=== PATIENT | female | born 2000 | race Caucasian/White ===

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

== ENCOUNTER → 2020-07-01 13:29 | Outpatient (CLI) | payer BC, SELFPAY ==
[2020-07-01 15:25] LABS: AST(SGOT) 25 U/L (15-37); Alanine Aminotransfer ALT/SGPT 46 U/L (13-56); Albumin, Serum 3.8 g/dL (3.2-5.0); Alkaline Phosphatase 113 U/L (45-117); Amylase 44 U/L (25-115); Anion Gap 5 (5-15); BUN 11 mg/dL (7-18); BUN/Creat Ratio 13.7 RATIO (10-20); Calcium,Total 9.3 mg/dL (8.5-10.1); Chloride 104 mmol/L (98-107); EST Glomerular Filtration Rate 95 mL/min (>60); Est Glom Filt Rate - Afr Amer 115 mL/min (>60); Globulin 4.4 g/dL (2.2-4.2); Glucose 82 mg/dL (74-106); Lipase 34 U/L (73-393); Potassium 3.7 mmol/L (3.5-5.1); Protein, Total 8.2 g/dL (6.4-8.2); Sodium Level 136 mmol/L (136-145)
== END ==
PROVIDERS: PCP Family Medicine; Visit Provider Family Medicine
DX: R11.10 Vomiting, unspecified (principal)
CPT/HCPCS: 36415; 80048; 80076; 82150; 83690

== ENCOUNTER → 2020-07-08 08:47 | Outpatient (CLI) | payer BC, SELFPAY ==
--- NOTE | 2020-07-08 08:52 | US_ITS ---
STUDY: ABDOMINAL ULTRASOUND - RIGHT UPPER QUADRANT REASON FOR VISIT: Female, 19 years old vomiting TECHNIQUE: Ultrasound evaluation of the right upper quadrant was performed with real-time and static leary-scale imaging. TECHNICAL QUALITY: Limited. Examination limited due to obesity. COMPARISON: None. FINDINGS: Liver: The liver measures 13.3 cm. There is normal echogenicity of the liver. The bile ducts are within normal limits. There is hepatic color flow. The direction of portal flow is hepatopetal. There is no demonstrated mass lesion. Gallbladder: Normal distended gallbladder. The gallbladder wall measures 3.5 mm. There is a negative sonographic Lewis''s sign. There is no pericholecystic fluid. There are no gallstones. Common Bile Duct (C.B.D.): The common bile duct measures 4.7 mm. Pancreas: Visualized pancreas is sonographically normal Right Kidney: Normal size of the right kidney. The right kidney measures 11.6 x 4.1 x 4.1 cm. Normal renal cortex. The right cortex measures 1.9 cm. There is a simple 1.1 cm cyst There is no right hydronephrosis. US/Abdomen Limited IMPRESSION: No suspicious sonographic findings, simple right renal cyst, no specific follow-up needed Electronically Signed: Subhash Lake MD at 9:41 EDT , Service support ,
== END ==
PROVIDERS: PCP Family Medicine; Referring Provider Family Medicine; Visit Provider Family Medicine
DX: R11.10 Vomiting, unspecified (principal)
CPT/HCPCS: 76705

== ENCOUNTER → 2020-09-09 | Outpatient (CLI) | payer BC, SELFPAY ==
[2020-09-09 21:29] LABS: Probe Check PASS; Specimen Processing Control PASS
== END | disposition home or self-care (01) ==
PROVIDERS: PCP Family Medicine; Referring Provider Family Medicine; Visit Provider Family Medicine
DX: B34.9 Viral infection, unspecified (principal)
CPT/HCPCS: 87633; 87635; U0005; U0003

== ENCOUNTER → 2020-11-17 15:43 | Outpatient (CLI) | payer BC, SELFPAY ==
[2020-11-17 17:54] LABS: T4 Free Direct 1.06 ng/dL (0.76-1.46); Thyroid Stim Hormone (TSH) 2.34 uIU/mL (0.358-3.74)
[2020-11-20 03:07] LABS: Chlamydia By Nucleic Acid AMP Negative (Negative)
[2020-11-20 12:51] LABS: Gonococcus By Nucleic Acid AMP Negative (Negative)
[2020-11-22 13:23] LABS: HPV Reflexed? NOT INDICATED
== END ==
PROVIDERS: PCP Family Medicine; Visit Provider Obstetrics & Gynecology
DX: N92.6 Irregular menstruation, unspecified (principal); Z12.4 Encounter for screening for malignant neoplasm of cervix; Z11.3 Encounter for screening for infections with a predominantly sexual mode of transmission
CPT/HCPCS: 36415; 84439; 84443; 84481; 87491; 87591; 88175; G0145

== ENCOUNTER → 2021-09-13 | Outpatient (CLI) | payer BC, SELFPAY ==
--- NOTE | 2021-09-13 18:14 | US_ITS ---
EXAM: US PELVIS TRANSVAGINAL CLINICAL INDICATION: IRREG MENSES TECHNIQUE: Transvaginal pelvic ultrasound was performed with grayscale and color Doppler imaging. Transvaginal imaging was used for better evaluation of the endometrium and adnexa. This report was created using [employer] technology. COMPARISON: None. FINDINGS: UTERUS/CERVIX: Anteverted uterus. Uterus measures 8.3 x 4.7 x 2.9 cm with no discrete masses. Endometrial thickness is 6 mm. Cervix contains nabothian cysts. RIGHT OVARY: Blood flow to both ovaries. No ovarian or any adnexal masses. Right ovary measures 3.2 x 2.0 x 2.0 cm while the left ovary measures 3.9 x 2.1 x 1.4 cm. LEFT OVARY: See above. FREE FLUID: Small amount of free fluid in pelvic cul-de-sac is nonspecific. BLADDER: Empty bladder which cannot be evaluated with this probe. US/Transvaginal Non- IMPRESSION: 1. Small amount of free fluid in pelvic cul-de-sac is nonspecific. 2. No ovarian or adnexal masses. Electronically Signed: Benjamin Minor MD at 1:11 EDT ,
== END | disposition home or self-care (01) ==
LOC: US 18:04
PROVIDERS: PCP Family Medicine; Referring Provider Family Medicine; Visit Provider Family Medicine
DX: N92.6 Irregular menstruation, unspecified (principal)
CPT/HCPCS: 76830

== ENCOUNTER → 2023-09-27 | Outpatient (CLI) | payer BC, SELFPAY ==
[2023-09-27 10:59] LABS: Absolute Lymphocyte Count 2.92 X10^3/uL (0.83-4.51); Absolute Neutrophil Count 8.5 X10^3/uL (2.0-7.7); Basophil# 0.02 X10^3/uL; Basophil% 0.2 % (0-1); Eosinophil# 0.11 X10^3/uL; Eosinophils% 0.9 % (0-5); Hemoglobin 13.2 g/dL (12.0-15.0); Lymphocyte # 2.92 X10^3/ul (0.83-4.51); Lymphocyte % 23.9 % (19-41); Mean Corp Hgb Conc 32.2 g/dL (32-36); Mean Corpuscular Volume 80.9 fL (81-99); Mean Platelet Vol. 10.5 fl (6.2-12.0); Monocyte% 4.9 % (0-10); NRBC Flagged by Analyzer 0 % (0-5); Neutrophil # 8.53 X10^3/uL (2.7-7.7); Neutrophil % 69.9 % (47-70); Platelet Count 319 K/mm3 (150-450); RBC Distribution Width SD 41.1 fl (35.1-43.9); Red Blood Count 5.07 M/mm3 (4.2-5.4); White Blood Count 12.2 K/mm3 (4.4-11.0)
[2023-09-27 11:27] LABS: Hemoglobin A1c 5.2 % (3.8-5.6)
[2023-09-27 11:49] LABS: ALB/GLOB Ratio 0.8 RATIO (0.9-2.4); AST(SGOT) 25 U/L (15-37); Alanine Aminotransfer ALT/SGPT 45 U/L (13-56); Albumin, Serum 3.5 g/dL (3.2-5.0); Alkaline Phosphatase 108 U/L (45-117); Anion Gap 3 (5-15); BUN 12 mg/dL (7-18); Chloride 104 mmol/L (98-107); EST Glomerular Filtration Rate 93 mL/min (>60); Est Glom Filt Rate - Afr Amer 113 mL/min (>60); Estradiol 62.8 pg/mL; Follicle Stimulating Hormone 4.7 mIU/mL; Free T3 3.3 pg/mL (2.18-3.98); Globulin 4.4 g/dL (2.2-4.2); Glucose 99 mg/dL (74-106); Potassium 3.8 mmol/L (3.5-5.1); Protein, Total 7.9 g/dL (6.4-8.2); Sodium Level 135 mmol/L (136-145); T4 Free Direct 1.04 ng/dL (0.76-1.46); Thyroid Stim Hormone (TSH) 4.67 uIU/mL (0.358-3.74)
[2023-10-03 12:09] LABS: 17-Hydroxyprogesterone 32 ng/dL (.)
== END | disposition home or self-care (01) ==
PROVIDERS: PCP Family Medicine; Referring Provider Nurse Practitioner Family; Visit Provider Nurse Practitioner Family
DX: N91.4 Secondary oligomenorrhea (principal); E66.01 Morbid (severe) obesity due to excess calories; Z68.42 Body mass index [BMI] 45.0-49.9, adult; Z13.29 Encounter for screening for other suspected endocrine disorder
CPT/HCPCS: 36415; 80053; 82627; 82670; 83001; 83036; 83498; 84403; 84439; 84443; 84481; 85025; 82626

== ENCOUNTER → 2023-10-03 | Outpatient (CLI) | payer BC, SELFPAY ==
--- NOTE | 2023-10-03 12:31 | US_ITS ---
STUDY: ULTRASOUND OF THE FEMALE PELVIS - COMPLETE REASON FOR EXAM: Female, 23 years old. Oligomenorrhea . History of polycystic ovary disease. LMP: July 26, 2023. TECHNIQUE: Transabdominal and Transvaginal TECHNICAL QUALITY: Adequate. COMPARISON: Comparison is made with prior study dated September 13, 2021. FINDINGS: The uterus is anteverted and is in a midline position. The uterus measures 9 cm x 6.2 cm x 2.3 cm. There is a Nabothian cyst of the cervix. The endometrium measures 12 mm in thickness, and is heterogeneous (striated). There is no demonstrated endometrial mass. There is no demonstrated myometrial mass. I.U.D. - The patient does not have an I.U.D. The right ovary is visualized. The right ovary measures 3.8 cm x 2.6 cm x 2.1 cm. There is no right ovarian cyst or ovarian mass. There is no visualized right adnexal mass or complex lesion. There is normal arterial and normal venous vascularity. The left ovary is visualized. The left ovary measures 3.6 cm x 2.7 cm x 2.4 cm. There is no left ovarian cyst or ovarian mass. There is no visualized left adnexal mass or complex lesion. There is normal arterial and normal venous vascularity. There is minimal fluid in the cul-de-sac. The pre void volume of the bladder was 101 ml. US/Pelvic w/ Transvaginal IMPRESSION: Minimal amount of free fluid in the cul-de-sac. Heterogeneous appearance of the endometrium. Endometrium measures 12 mm. Electronically Signed: Jacob Delarosa MD at 10:44 EDT ,
== END | disposition home or self-care (01) ==
LOC: US 12:26
PROVIDERS: PCP Family Medicine; Referring Provider Nurse Practitioner Family; Visit Provider Nurse Practitioner Family
DX: N91.4 Secondary oligomenorrhea (principal); E66.01 Morbid (severe) obesity due to excess calories; Z68.42 Body mass index [BMI] 45.0-49.9, adult
CPT/HCPCS: 76830; 76856

== ENCOUNTER → 2023-12-06 | Outpatient (CLI) | payer BC, SELFPAY ==
[2023-12-06 11:20] LABS: Absolute Lymphocyte Count 3.46 X10^3/uL (0.83-4.51); Absolute Neutrophil Count 7.7 X10^3/uL (2.0-7.7); Basophil# 0.02 X10^3/uL; Basophil% 0.2 % (0-1); Eosinophil# 0.17 X10^3/uL; Eosinophils% 1.4 % (0-5); Hematocrit 34.4 % (37-47); Lymphocyte # 3.46 X10^3/ul (0.83-4.51); Lymphocyte % 28.8 % (19-41); Mean Corpuscular Hgb 25.5 pg (27.0-32.0); Mean Corpuscular Volume 79.8 fL (81-99); Mean Platelet Vol. 9.9 fl (6.2-12.0); Monocyte# 0.57 X10^3/uL; Monocyte% 4.8 % (0-10); NRBC Flagged by Analyzer 0 % (0-5); Neutrophil # 7.71 X10^3/uL (2.7-7.7); Neutrophil % 64.2 % (47-70); Platelet Count 355 K/mm3 (150-450); RBC Distribution Width CV 14.3 % (11.6-14.6); RBC Distribution Width SD 41.3 fl (35.1-43.9); Red Blood Count 4.31 M/mm3 (4.2-5.4)
== END | disposition home or self-care (01) ==
LOC: LAB 11:02
PROVIDERS: Internal Medicine Endocrinology, Diabetes & Metabolism; PCP Family Medicine; Referring Provider Nurse Practitioner Family; Visit Provider Nurse Practitioner Family
DX: R94.6 Abnormal results of thyroid function studies (principal); N92.6 Irregular menstruation, unspecified
CPT/HCPCS: 36415; 84443; 85025; 86376

== ENCOUNTER → 2023-12-12 | Outpatient (CLI) | payer BC, SELFPAY ==
--- NOTE | 2023-12-12 12:12 | US_ITS ---
STUDY: ULTRASOUND OF THE FEMALE PELVIS - COMPLETE REASON FOR EXAM: Female, 23 years old. Abnormal uterine bleeding LMP: TECHNIQUE: Transabdominal and Transvaginal TECHNICAL QUALITY: Limited. Examination limited due to obesity. COMPARISON: Comparison is made with prior study dated October 03, 2023. FINDINGS: The uterus is anteverted and is in a midline position. The uterus measures 9.3 cm x 5.1 cm x 5.8 cm. There is a Nabothian cyst of the cervix. The endometrium measures 5 mm in thickness, and is heterogeneous (striated). There is no demonstrated endometrial mass. There is no demonstrated myometrial mass. I.U.D. - The patient does not have an I.U.D. The right ovary is visualized. The right ovary measures 3.7 cm x 2.8 cm x 1.7 cm. There is no right ovarian cyst or ovarian mass. There is no visualized right adnexal mass or complex lesion. There is normal arterial and normal venous vascularity. The left ovary is visualized. The left ovary measures 4 cm x 2.6 x 2.2 cm. There is no left ovarian cyst or ovarian mass. There is no visualized left adnexal mass or complex lesion. There is normal arterial and normal venous vascularity. There is no fluid in the cul-de-sac. The pre void volume of the bladder was 2051 ml. The post void volume of the bladder was ml. Polycystic ovary disease: No. US/Pelvic w/ Transvaginal IMPRESSION: Normal female pelvis. Electronically Signed: Jacob Delarosa MD at 14:24 EDT ,
== END | disposition home or self-care (01) ==
LOC: US 12:10
PROVIDERS: PCP Family Medicine; Referring Provider Nurse Practitioner Family; Visit Provider Nurse Practitioner Family
DX: N92.6 Irregular menstruation, unspecified (principal)
CPT/HCPCS: 76830; 76856

== ENCOUNTER → 2024-03-12 | Outpatient (CLI) | payer BC, SELFPAY ==
[2024-03-12 13:41] LABS: Thyroid Stim Hormone (TSH) 0.022 uIU/mL (0.358-3.740)
== END | disposition home or self-care (01) ==
LOC: LAB 11:42
PROVIDERS: PCP Family Medicine; Referring Provider Internal Medicine Endocrinology, Diabetes & Metabolism; Visit Provider Internal Medicine Endocrinology, Diabetes & Metabolism
DX: E03.9 Hypothyroidism, unspecified (principal)
CPT/HCPCS: 36415; 84439; 84443

== ENCOUNTER → 2024-05-22 | Outpatient (CLI) | payer BC, SELFPAY | END | disposition home or self-care (01) | LOC: MTLAB 09:34 | PROVIDERS: PCP Family Medicine; Referring Provider Internal Medicine Endocrinology, Diabetes & Metabolism; Visit Provider Internal Medicine Endocrinology, Diabetes & Metabolism | DX: E03.9 Hypothyroidism, unspecified (principal) | CPT/HCPCS: 36415; 84439; 84443 ==

== ENCOUNTER → 2024-07-25 | Outpatient (CLI) | payer BC, SELFPAY ==
[2024-07-26 04:07] LABS: PROGESTERONE 6.2 ng/mL (.)
== END | disposition home or self-care (01) ==
LOC: LAB 08:18
PROVIDERS: PCP Family Medicine; Referring Provider Obstetrics & Gynecology; Visit Provider Obstetrics & Gynecology
DX: N92.6 Irregular menstruation, unspecified (principal)
CPT/HCPCS: 36415; 84144

== ENCOUNTER → 2024-08-25 | Outpatient (CLI) | payer BC, SELFPAY ==
[2024-08-26 04:07] LABS: PROGESTERONE 0.3 ng/mL (.)
== END | disposition home or self-care (01) ==
LOC: LAB 10:46 → BWCLAB 11:04
PROVIDERS: PCP Family Medicine; Referring Provider Obstetrics & Gynecology; Visit Provider Obstetrics & Gynecology
DX: E28.2 Polycystic ovarian syndrome (principal)
CPT/HCPCS: 36415; 84144

== ENCOUNTER → 2024-09-10 | Outpatient (CLI) | payer BC, SELFPAY | END | disposition home or self-care (01) | LOC: MTLAB 11:44 | PROVIDERS: PCP Family Medicine; Referring Provider Internal Medicine Endocrinology, Diabetes & Metabolism; Visit Provider Internal Medicine Endocrinology, Diabetes & Metabolism | DX: E03.9 Hypothyroidism, unspecified (principal) | CPT/HCPCS: 36415; 84439; 84443 ==

== ENCOUNTER → 2024-10-06 | Outpatient (CLI) | payer OTHER, SELFPAY ==
[2024-10-07 04:07] LABS: PROGESTERONE 0.1 ng/mL (.)
== END | disposition home or self-care (01) ==
PROVIDERS: PCP Family Medicine; Visit Provider Obstetrics & Gynecology
DX: E28.2 Polycystic ovarian syndrome (principal); N92.6 Irregular menstruation, unspecified
CPT/HCPCS: 36415; 84144

== ENCOUNTER → 2024-11-17 | Outpatient (CLI) | payer OTHER, SELFPAY ==
[2024-11-18 04:07] LABS: PROGESTERONE 0.9 ng/mL (.)
== END | disposition home or self-care (01) ==
PROVIDERS: PCP Family Medicine; Referring Provider Obstetrics & Gynecology; Visit Provider Obstetrics & Gynecology
DX: N91.4 Secondary oligomenorrhea (principal)
CPT/HCPCS: 36415; 84144

== ENCOUNTER → 2024-12-05 | Outpatient (CLI) | payer OTHER, SELFPAY ==
--- OUTSIDE RECORDS SUMMARY | 2024-12-05 09:54 | XMS RPT_ITS | CCD ---
Author Organization [facility] Care Team Providers Care Acupuncture Physician Name Role Phone Free, Text Entry Unavailable Unavailable Amy Blount Unavailable Unavailable Aristides REVELES, Dr. Edilia Bonilla Primary Care Provider Dr. Edilia Irving MD Referring Provider Karina ULLOA-CKristin Attending Provider Dr. Seth Camargo MD Attending Provider Dr. Seth Camargo MD Referring Provider Dr. Nichelle Parsons DO Attending Provider Dr. Edilia Irving MD Primary Care Provider Dr. Edilia Irving MD Referring Provider Dr. Seth Camargo MD Attending Provider Dr. Seth Camargo MD Referring Provider Dr. Nichelle Parsons DO Referring Provider Dr. Edilia Irving MD Primary Care Provider Dr. Nichelle Parsons DO Attending Provider Dr. Edilia Irving MD Referring Provider Dr. Edilia Irving MD Primary Care Provider Dr. Seth Camargo MD Attending Provider Dr. Seth Camargo MD Referring Provider Edilia Irving Primary Care Unavailable Nichelle Parsons Attending Unavailalia e Nichelle Parsons Referring Unavailalia e Seth Camargo Referring Unavailable Jolliff, Edilia S Primary Care Unavailable Raman, Seth Attending Unavailable Raman, Seth Attending Unavailable Jolliff, Edilia S Primary Care Unavailable Raman, Seth Referring Unavailable Jolliff, Edilia S Primary Care Unavailable Kristin Collins Attending Unavailable Kristin Collins Referring Unavailable Raman, Seth Consulting Unavailable Jolliff, Edilia S Primary Care Unavailable Barkman, Kristin Attending Unavailable Barkman, Kristin Referring Unavailable Jolliff, Edilia S Primary Care Unavailable Jolliff, Edilia S Referring Unavailable BarkmanKristin Attending Unavailable Jolliff, Edilia S Primary Care Unavailable Jolliff, Edilia S Referring Unavailable BarkmanKristin Attending Unavailable Jolliff, Edilia S Primary Care Unavailable Jolliff, Edilia S Referring Unavailable Vande Velde, Nichelle Attending Unavailabl e Jolliff, Edilia S Primary Care Unavailable Vande Velde, Nichelle Attending Unavailabl e Vande Velde, Nichelle Referring Unavailabl e Jolliff, Edilia S Referring Unavailable Jolliff, Edilia S Primary Care Unavailable Raman, Seth Attending Unavailable Jolliff, Edilia S Primary Care Unavailable Vande Velde, Nichelle Attending Unavailabl e Jolliff, Edilia S Primary Care Unavailable Vande Velde, Nichelle Referring Unavailabl e Vande Velde, Nichelle Attending Unavailabl e Raman, Seth Referring Unavailable Jolliff, Edilia S Primary Care Unavailable Raman, Seth Attending Unavailable Jolliff , Dr. Edilia Bonilla Primary Care Physician [phone] Dr. Nichelle Parsons DO Attending Physician Dr. Seth Camargo MD Attending Physician Allergies Allergy Classification Reported Allergen(s) Allergy Type Date of Onset Reaction(s) Facility (8 sources) Codeine Drug Allergy 5 Unknown, Itching [facility] (1 source) Codeine Drug Allergy 5 [facility] Repository Medications Current Medications Medication Drug Class(es) Dates Sig (Normalized) Sig (Original) amoxicillin 875 mg oral tablet (1 source) Penicillin-class Antibacterial Start: 02-15-2021 End: 02-24-2021 take 1 tablet by mouth twice daily amoxicillin 875 mg oral tablet ; 1 tab(s) orally 2 times a day x 10 days Quantity: 20 Refills: 0 Ordered: 15-Feb-2021 Amy Blount Start: 15-Feb-2021 End: 24-Feb-2021 Generic Substitution Allowed Comments: Finish all this medication unless otherwise directed by prescriber. Comment on above: Finish all this medi cation unless otherwise directed by prescriber. benzonatate 100 mg oral capsule (2 sources) Non-narcotic Antitussive Start: 12-15-2019 End: 02-21-2021 take 2 capsules by mouth every eight hours as needed benzonatate 100 mg oral capsule ; 1-2 cap(s) orally every 8 hours, As Needed for cough Quantity: 40 Refills: 0 Ordered: 15-Feb-2021 Amy Blount Start: 15-Feb-2021 End: 21-Feb-2021 Generic Substitution Allowed Comments: May cause drowsiness. Alcohol may intensify this effect. Use care when operating dangerous machinery.Swallow whole. Do not crush. Comment on above: May cause drowsiness . Alcohol may intensify this effect. Use care when operating dangerous machinery.Swallow whole. Do not crush. letrozole 2.5 mg oral tablet (7 sources) Aromatase Inhibitor Start: 08-27-2024 End: 10-07-2024 norethindrone 0.35 mg oral tablet (1 source) take 1 tablet by mouth once daily norethindrone 0.35 mg oral tablet ; 1 tab(s) orally once a day Quantity: 0 Refills: 0 Ordered: 15-Dec-2019 Florinda Barba Generic Substitution Allowed Completed/Discontinued Medications Medication Drug Class(es) Dates Sig (Normalized) Sig (Original) clomiPHENE citrate 50 mg oral tablet (11 sources) Estrogen Agonist/Antag onist Start: 5 End: 5 take 3 tablets by mouth once daily Clomiphene Citrate (Clomid) 50 mg tablet Discontinued 100 mg PO daily 10 5 August 07, 2024 9:47am August 27, 2024 2:33pm start on day 3 of menses levothyroxine sodium 0.125 mg oral tablet (20 sources) l-Thyroxine Start: 4 End: Levothyroxine 125 mcg tablet Discontinued 125 ug PO .Mon-Sat 90 June 18, 2024 11:52am September 19, 2024 9:48am medroxyPROGESTERone acetate 5 mg oral tablet (20 sources) Progestin Start: End: Medroxyprogesterone 5 mg tablet Discontinued 5 mg PO daily 21 90 4 May 02, 2024 5:12pm October 07, 2024 2:54pm take for 7 days a month to induce menses. (take on day 30 of cycle if no menses) Start: 09-27-2023 End: 12-06-2023 Medroxyprogesterone 5 mg tab let Discontinued 5 mg PO .COMPLEX 45 0 September 27, 2023 12:00am December 06, 2023 10:09am Take 1 tab TID until no bleeding x 24 hours then BID to finish RX. megestrol acetate 20 mg oral tablet (7 sources) Progestin Start: 12-06-2023 End: 03-12-2024 take 1 tablet by mouth once daily Megestrol 20 mg tablet Discontinued 20 mg PO daily 30 0 December 06, 2023 12:00am March 12, 2024 11:41am metFORMIN hydrochloride 500 mg oral tablet (7 sources) Biguanide Start: 11-07-2022 End: 09-27-2023 take 1 tablet by mouth twice daily Metformin 500 mg tablet Discontinued 500 mg PO TWICE A DAY 60 2 November 07, 2022 12:00am September 27, 2023 9:10am Semaglutide (Weight Loss) (7 sources) Start: 11-06-2022 End: 09-27-2023 Semaglutide (Weight Loss) (Wegovy) 0.25 mg/0.5 mL pen injector Discontinued 0.25 mg SC EVERY WEEK 2 3 November 06, 2022 12:00am September 27, 2023 9:10am administer weeks 1 through 4 of therapy Start: 11-06-2022 End: 09-27-2023 Semaglutide (Weight Loss) (W egovy) 0.25 mg/0.5 mL pen injector Discontinued 0.25 mg SC EVERY WEEK 2 November 06, 2022 12:00am September 27, 2023 9:10am administer weeks 1 through 4 of therapy Problems Active Problems Problem Classification Problem Date Documented Da te Episodic/Chronic Essential hypertension (8 sources) Hypertensive disorder; Translations: [Essential (primary) hypertension] 09-27-2023 Chronic Menstrual disorders (18 sources) Irregular periods; Translations: [Irregular menstruation, unspecified] Onset: 03-12-2024 09-27-2023 Chronic Comment on above: >28 day menses curre ntly. Other endocrine disorders (13 sources) Polycystic ovary syndrome; Translations: [Polycystic ovarian syndrome] 09-27-2023 Chronic Comment on above: Did not tolerate OCP /estrogen in past-high BP. Other endocrine disorders (1 source) Polycystic ovarian syndrome; Translations: [Polycystic ovarian syndrome] Onset: 10-28-2024 Chronic Other lower respiratory disease (2 sources) Cough; Translations: [Cough] 02-15-2021 Episodic Other nutritional; endocrine; and metabolic disorders (7 sources) Obesity; Translations: [Obesity, unspecified] 11-06-2022 Chronic Other upper respiratory infections (2 sources) Acute sinusitis; Translations: [Acute sinusitis, unspecified] 02-15-2021 Episodic Thyroid disorders (12 sources) Acquired hypothyroidism; Translations: [Hypothyroidism, unspecified] Onset: 09-19-2024 12-11-2023 Chronic Unclassified (2 sources) SINUS 02-15-2021 Comment on above: SINUS Past or Other Problems Problem Classification Problem Date Documented Da te Episodic/Chronic Other screening for suspected conditions (not mental disorders or infectious disease) (8 sources) Thyroid function tests abnormal; Translations: [Abnormal results of thyroid function studies] Onset: 12-27-2023 10-04-2023 Episodic Results Test Name Value Interpretation Reference Range Facility PROGESTERONE 4317on 09-30-20 25 PROGESTERONE 0.9 ng/mL Normal . [facility] Comment on above: Order Comment: N Result Comment: Foll icular phase 0.1 - 0.9 Luteal phase 1.8 - 23.9 Ovulation phase 0.1 - 12.0 First trimester 11.0 - 44.3 Second trimester 25.4 - 83.3 Third trimester 58.7 - 214.0 Postmenopausal 0.0 - 0.1 Performed at: - [facility] [id number] Baker Chef: Alonso Ram PhD, Phone: [phone] Performed By: #### L 506.5789, [id number] #### [facility] [address] [place], [place], [address] PROGESTERONE 4317on 10-08-19 PROGESTERONE 0.1 ng/mL Normal . [facility] Comment on above: Order Comment: N Result Comment: Foll icular phase 0.1 - 0.9 Luteal phase 1.8 - 23.9 Ovulation phase 0.1 - 12.0 First trimester 11.0 - 44.3 Second trimester 25.4 - 83.3 Third trimester 58.7 - 214.0 Postmenopausal 0.0 - 0.1 Performed at: [facility] [id number] Baker Chef: Alonso Ram PhD, Phone: [phone] Performed By: #### L 573.9499, [id number] #### [facility] [address] [place], [place], [address] Endocrinology Visit Reporton 09-19-2024 Endocrinology Visit Report [facility] [address] [place] [address] OFFICE VISIT Date of Service: 09/19/24 MR#: [id number] Acct: [id number] Name: LOZANOULISES ANN-MARIE Rep #: [id number] : 2000 Provider: Lillian Horne Age/Sex: 23/F Location: [facility] [place] Status: Signed Intake Vital Signs 12/06/23 10:04 05/02/24 09:57 09/19/24 09:30 Height 5 ft 4 in 5 ft 4 in 5 ft 4 in Weight: 286 lb 2 oz BMI 49.1 BP 136/91 H Blood Pressure Location Rt brachial Position Sitting Pulse 94 Pulse Source Monitor Pulse Oximetry (%) 97 Oxygen Delivery Method room air Intake Visit Reasons: 1 Y FU Chief Complaint: PCOS Is patient in pain?: No Allergies codeine Adverse Reaction (Intermediate, Verified 09/19/24 09:32) Itching Medications ???Medication ???Instructions ???Recorded ???Confirmed ???Type medroxyprogesterone 5 mg tablet 5 mg PO QDAY 90 days #21 tabs 04/1909/19/24 Rx letrozole 2.5 mg tablet 2.5 mg PO QDAY 5 days #5 tabs 11/1309/19/24 Rx levothyroxine 125 mcg tablet 125 mcg PO .Mon-Sat #90 tabs 09/1909/19/24 Rx PFSH Medical History Hypothyroidism (acquired) Abnormal results of thyroid function studies Obesity Oligomenorrhea PCOS (polycystic ovarian syndrome) Surgical History History of tonsillectomy Social History adopted: No current occupational status: employed current occupation: [employer] current occupational exposures/hazards: No pets and animals: Yes pets and animals: dog(s) history of recent travel: No sexually active: Yes Smoking Status: Never smoker alcohol intake: never substance use type: does not use caffeine: Yes Type: coffee seatbelt use: always do you feel safe at home: Yes additional social history: : [employer] HPI HPI Chief Complaint: PCOS Details: ULISES LOZANO, is a 23 F who presents to the office today for follow up. She has hypothyroidism and is taking levothyroxine. TSH is 1.89 She has PCOS and is attempting . She is using Clomid. She is feeling well. She will be at higher risk during due to BMI. ROS Const Constitutional: No fatigue, weight change or change in appetite Eyes Eyes: No change in vision ENT ENT: No dizziness/vertigo or difficulty swallowing Cardio Cardiology: No chest pain at rest, chest pain with exertion, shortness of breath or palpitations Musc Musculoskeletal: No abnormal gait, joint pain, numbness or tingling Neuro Neurology: No abnormal gait, memory loss, numbness or tingling Psych Psychiatric: No change in appetite, No memory loss and No Thoughts of harming yourself/Others Resp Respiratory: No cough, chest congestion or shortness of breath Gastro GI: No abdominal pain, constipation, diarrhea or difficulty swallowing Genitourinary-Female: No burning urination Skin Skin: No itchy eyes or wounds Endo Endocrine: No fatigue or weight change Aller/Imm Allergy/Immunologic: No itchy eyes Exam Const General: cooperative, healthy appearing, comfortable, no acute distress, well developed and not cushingoid Nutritional Appearance: well nourished Orientation: alert, awake and oriented x3 HENMT Head: normal to inspection Ears: hearing grossly normal bilaterally Nose: external nose normal Mouth: oral mucosae normal Eyes General: appearance normal, both eyes and all related structures Alignment and Position: alignment normal Periorbital: periorbital findings normal Eyelids: eyelids normal Conjunctivae: conjunctivae normal Neck Neck: normal visual inspection Neck mass: No Thyroid: thyroid normal Lymphatic: no lymphadenopathy noted Chest Chest palpation inspection: normal inspection of the chest Resp Effort Inspection: normal respiratory effort, able to speak in complete sentences, symmetric chest movement, no audible wheezes and no cough Cardio Rate: regular rate Rhythm: regular rhythm GI Inspection: normal to inspection Skin General: no rashes or lesions noted Neuro General: patient alert, patient awake and patient oriented x3 Cranial Nerves: CN's II-XI intact bilaterally Cognition: normal cognition Speech: speech normal Gait: normal gait Motor: muscle tone normal throughout Extrem General: no edema Psych Appearance: grossly normal Mental Status: mental status grossly normal Mood: congruent mood Affect: normal affect Speech and Movement: speech and movement normal Attitude: cooperative Thought Process: normal Thought Content: normal Judgment: judgment good Assessment and Plan Assessment and Plan (1) Hypothyroidi (more content not included)... Normal [facility] T4 Free Directon 09-10-2024 T4 FREE DIRECT 1.60 ng/dL High 0.76-1.46 [facility] Comment on above: Performed By: #### L 506.0400, [id number] #### [facility] [place], [address] T4 freeOrdered By: Seth Camargo on 09-10-2024 Free T4 [Mass/Vol] 1.60 ng/dL High 0.76-1.46 [facility] TSH DL <= 0.005 mIU/L QnOrde red By: Seth Camargo on 09-10-2024 TSH Qn 1.890 uIU/mL 0.300-4.200 [facility] Thyroid Stim Hormone (TSH)on 09-10-2024 TSH 1.890 uIU/mL Normal 0.300-4.200 [facility] Comment on above: Performed By: #### L 506.0400, [id number] #### [facility] [address] [place], [place], [id number] PROGESTERONE 4317on 08-27-19 25 PROGESTERONE 0.3 ng/mL Normal . [facility] Comment on above: Order Comment: N Result Comment: Foll icular phase 0.1 - 0.9 Luteal phase 1.8 - 23.9 Ovulation phase 0.1 - 12.0 First trimester 11.0 - 44.3 Second trimester 25.4 - 83.3 Third trimester 58.7 - 214.0 Postmenopausal 0.0 - 0.1 Performed at: [address] [id number] Baker Chef: Alonso Ram PhD, Phone: [phone] Performed By: #### L 506.0400, L577.6420 #### [facility] [address] [place], [place], [id number] PROGESTERONE 4317on -09-07 25 PROGESTERONE 6.2 ng/mL Normal . [facility] Comment on above: Order Comment: N21 d ay progesterone Result Comment: Foll icular phase 0.1 - 0.9 Luteal phase 1.8 - 23.9 Ovulation phase 0.1 - 12.0 First trimester 11.0 - 44.3 Second trimester 25.4 - 83.3 Third trimester 58.7 - 214.0 Postmenopausal 0.0 - 0.1 Performed at: [address] [id number] Baker Chef: Alonso Ram PhD, Phone: [phone] Performed By: #### L 506.0400, L546.7220 #### [facility] [address] [place], [place], [id number] T4 Free Directon 05-22-2024 T4 FREE DIRECT 1.40 ng/dL Normal 0.76-1.46 [facility] Comment on above: Performed By: #### L 506.0400, [id number] #### [facility] [address] [place], [address] T4 freeOrdered By: Seth Camargo on 05-22-2024 Free T4 [Mass/Vol] 1.40 ng/dL 0.76-1.46 [facility] TSH DL <= 0.005 mIU/L QnOrde red By: Seth Camargo on 05-22-2024 Thyroid Stimulating Hormone (TSH) 2.060 uIU/mL 0.300-4.200 [facility] TSH Qn 2.060 uIU/mL 0.300-4.200 [facility] Thyroid Stim Hormone (TSH)on 05-22-2024 TSH 2.060 uIU/mL Normal 0.300-4.200 [facility] Comment on above: Performed By: #### L 506.0400, [id number] #### [facility] [address] [place], [address] Vp Outcomes Office Visit Reporton 05-02-2024 Vp Outcomes Office Visit Report [facility] [address], [address] [place] [address] OFFICE VISIT Date of Service: 05/02/24 MR#: [id number] Acct: [id number] Name: BLAKEULISESAYLIN JACOBSEN Rep #: [id number] : 2000 Provider: Dr. Nichelle Cameron DO Age/Sex: 23/F Location: [facility] [place] Status: Signed Intake Vital Signs 03/12/24 10:41 05/02/24 09:57 05/02/24 09:57 Height 5 ft 4 in 5 ft 4 in 5 ft 4 in Weight: 283 lb 6 oz BMI 48.6 BP 146/89 H Intake Visit Reasons: Fertility Consult Cutter Brake Lining Required: No Is patient in pain?: No Allergies codeine Adverse Reaction (Intermediate, Verified 05/02/24 09:57) Itching Medications ???Medication ???Instructions ???Recorded ???Confirmed ???Type levothyroxine 125 mcg tablet 125 mcg PO .Mon-Sat #90 tabs 03/1305/02/24 Rx medroxyprogesterone 5 mg tablet 5 mg PO QDAY #60 tabs 05/02/24 Rx Post menopausal: No Patient : No : No PFSH Medical History Hypothyroidism (acquired) Abnormal results of thyroid function studies Obesity Oligomenorrhea PCOS (polycystic ovarian syndrome) Surgical History History of tonsillectomy Social History adopted: No current occupational status: employed current occupation: [employer] current occupational exposures/hazards: No pets and animals: Yes pets and animals: dog(s) history of recent travel: No sexually active: Yes Smoking Status: Never smoker alcohol intake: never substance use type: does not use caffeine: Yes Type: coffee seatbelt use: always do you feel safe at home: Yes additional social history: : [employer] [facility] Fertility Consult Details: ULISES LOZANO is a 23 year old who presents for discussion about fertility. 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 any additional risk factors identified: obesity and hypothyroidism History 0 Elective abortions Hx Para Spontaneous abortions Hx # Term Pregnancies Ectopic pregnancies Hx # Pregnancies Multiple births # of living children ROS Const ROS Unobtainable: All systems reviewed are unremarkable except as noted in H Resp Resp: Reports system reviewed and no additional complaints, except as documented; Denies cough GI GI: Reports as per HPI Psych Psych: Reports system reviewed and no additional complaints, except as documented Exam Const General: cooperative, healthy appearing, comfortable and no acute distress Resp Effort Inspection: normal respiratory effort Skin General: no rashes or lesions noted Psych Appearance: grossly normal Speech and Movement: speech and movement normal Coding Level of Care Code Off vis,est,level 4 Diagnoses PCOS (polycystic ovarian syndrome) E28.2 Assessment and Plan Assessment and Plan (1) PCOS (polycystic ovarian syndrome): Status: Chronic Comment: Did not tolerate OCP/estrogen in past-high BP. Medications: New medroxyprogesterone take for 7 days a month to induce menses. (take on day 30 of cycle if no menses) 5 mg PO QDAY 60 tabs 3RF Plan start with inducing periods with progesterone to help prevent uterine cancer. pt will decided based on her next thyroid lab panel she will also let us know if she wants to start with weight loss before starting clomid. considering semen analysis 05/02/24 1116 Date Nichelle Hassan Signature: Date (if applicable) CC: Normal [facility] Direct serum free thyroxine (FT4) measurementOrdered By: Seth Camargo on 03-12-2024 Free T4 [Mass/Vol] 1.60 ng/dL High 0.76-1.46 [facility] - Chemistry and C hemistry - challengeon 03-12-2024 HCG ( test) Ql (U) Negative [facility] Vp Outcomes Office Visit Reporton 03-12-2024 Vp Outcomes Office Visit Report [facility] [address], [address] [place] [address] OFFICE VISIT Date of Service: 03/12/24 MR#: [id number] Acct: [id number] Name: LOZANOULISES JACOBSEN Rep #: [id number] : 2000 Provider: TRISH Frye Age/Sex: 23/F Location: [facility] Status: Signed Intake Vital Signs 12/06/23 10:04 12/26/23 10:02 03/12/24 10:40 03/12/24 10:41 Height 5 ft 4 in 5 ft 4 in 5 ft 4 in 5 ft 4 in Weight: 275 lb BMI 47.2 BP 145/97 H Intake Visit Reasons: Follow up AUB Cutter Brake Lining Required: No Is patient in pain?: No Allergies codeine Adverse Reaction (Intermediate, Verified 03/12/24 10:41) Itching Medications ???Medication ???Instructions ???Recorded ???Confirmed ???Type levothyroxine 125 mcg tablet 125 mcg PO QDAY #90 tabs 12/11/23 03/12/24 Rx Is last menstrual period known: Yes Last Menstrual Period: 01/27/24 Post menopausal: No Patient : No : No Control Method: none PFSH Medical History Hypothyroidism (acquired) Abnormal results of thyroid function studies Obesity Oligomenorrhea PCOS (polycystic ovarian syndrome) Surgical History History of tonsillectomy Social History adopted: No current occupational status: employed current occupation: [employer] current occupational exposures/hazards: No pets and animals: Yes pets and animals: dog(s) history of recent travel: No sexually active: Yes Smoking Status: Never smoker alcohol intake: never substance use type: does not use caffeine: Yes Type: coffee seatbelt use: always do you feel safe at home: Yes additional social history: : [employer] [facility] Follow up AUB Details: ULISES LOZANO is a 23 year old who presents for follow up for abnormal bleeding. She completed megastrol. This completed January 03. She then had a period January 26. This was light bleed ing; this went on until the . She has been sexually active. She has not had a menses since January 26. She is now interesting in and would like to pursue fertility consult. Diagnosed with hashimotos; sees Dr. Camargo--started on Synthroid. Blood pressure today is borderline hypertensive. Last ultrasound in November--stable. Female Reproductive History Last Menstrual Period: 01/27/24 Questions: sexually active: Yes History 0 Elective abortions Hx Para Spontaneous abortions Hx # Term Pregnancies Ectopic pregnancies Hx # Pregnancies Multiple births # of living children ROS Const Constitutional: Denies chills, fever(s) or weight gain Eyes Eyes: Denies change in vision Resp Resp: Reports cough (recent bronchitis) : Reports menorrhagia (prior); Denies vaginal discharge, vaginal dryness, vaginal odor or vaginal pruritus Exam Const General: cooperative, healthy appearing, comfortable, no acute distress and well developed Resp Effort Inspection: normal respiratory effort, able to speak in complete sentences and symmetric chest movement Psych Mental Status: mental status grossly normal Mood: congruent mood Affect: normal affect Speech and Movement: speech and movement normal Results POC Urine Office , Urine Negative Last Edit by Anjelica Martin on 03/12/24 11:37 Coding Level of Care Code Established Pt Off vis,est,level 3 Patient Type Established Diagnoses Irregular menstrual bleeding N92.6 Hypothyroidism (acquired) E03.9 PCOS (polycystic ovarian syndrome) E28.2 Hypertension I10 Assessment and Plan Assessment and Plan (1) Irregular menstrual bleeding: Status: Acute Comment: >28 day menses currently. Plan: reviewed/discussed ultrasound results. negative office test. declines exam today. Would like to pursue evaluation/treatment with physician for this. RTO for fertility consult. (2) Hypothyroidism (acquired): Status: Acute Plan: management through Dr. Camargo. Follow with their treatment. (3) PCOS (polycystic ovarian syndrome): Status: Chronic Comment: Did not tolerate OCP/estrogen in past-high BP. Plan: Interested in fertility; RTO for evaluation. (4) Hypertension: Status: Chronic Plan: elevated BP today. Monitor twice a day at home. If remains elevated, recommend PCP management. Orders: Orders POC Urine Today N91.2 - Amenorrhea, unspecified 03/12/24 1220 Date Kristin CHAMBERS Cosigner Signature: Date (if applicable) CC: Normal [facility] T4 Free Directon 03-12-2024 T4 FREE DIRECT 1.60 ng/dL High 0.76-1.46 [facility] Comment on above: Performed By: #### L 506.0400, L501.9520 #### [facility] [address] [place], [address] TSH QnOrdered By: Seth Camargo on 03-12-2024 Thyroid Stimulating Hormone (TSH) 0.022 uIU/mL Low 0.358-3.740 [facility] Thyroid Stim Hormone (TSH)on 03-12-2024 TSH 0.022 uIU/mL Low 0.358-3.740 [facility] Comment on above: Performed By: #### L 506.0400, L501.9520 #### [facility] [address] [place], [place], [address] Pelvic w/ Transvaginalon Pelvic w/ Transvaginal [facility] Services [address] [place], [place] [address] Pelvic w/ Transvaginal MR#: [id number] Acct: [id number] Name: ULISES LOZANO Rep #: [id number] : 2000 F 23 From: Jacob woods MD PCP: Dr. Edilia Irving MD Status: [facility] Study: Pelvic w/ Transvaginal Date of Exam: 12/12/23 Exam# [id number] Ordering Dr: Kristin Collins DIRECTOR TRANSITION-C [id number] STUDY: ULTRASOUND OF THE FEMALE PELVIS - COMPLETE REASON FOR EXAM: Female, 23 years old. Abnormal uterine bleeding LMP: TECHNIQUE: Transabdominal and Transvaginal TECHNICAL QUALITY: Limited. Examination limited due to obesity. COMPARISON: Comparison is made with prior study dated October 03, 2023. FINDINGS: The uterus is anteverted and is in a midline position. The uterus measures 9.3 cm x 5.1 cm x 5.8 cm. There is a Nabothian cyst of the cervix. The endometrium measures 5 mm in thickness, and is heterogeneous (striated). There is no demonstrated endometrial mass. There is no demonstrated myometrial mass. I.U.D. - The patient does not have an I.U.D. The right ovary is visualized. The right ovary measures 3.7 cm x 2.8 cm x 1.7 cm. There is no right ovarian cyst or ovarian mass. There is no visualized right adnexal mass or complex lesion. There is normal arterial and normal venous vascularity. The left ovary is visualized. The left ovary measures 4 cm x 2.6 x 2.2 cm. There is no left ovarian cyst or ovarian mass. There is no visualized left adnexal mass or complex lesion. There is normal arterial and normal venous vascularity. There is no fluid in the cul-de-sac. The pre void volume of the bladder was 2051 ml. The post void volume of the bladder was ml. Polycystic ovary disease: No. US/Pelvic w/ Transvaginal IMPRESSION: Normal female pelvis. Electronically Signed: Jacob Delarosa MD at 14:24 EDT , CC: TRISH Collins; Dr. Edilia Irving MD Photoengraver: Signed [facility] Thyroid Peroxidase ABon 10-2 THYR PEROX AB [facility] Comment on above: Result Comment: TEST RESULTS LIMITS Thyroid Peroxidase (TPO) Ab 11 IU/mL 0-34 TESTING PERFORMED AT [facility]. ORIGINAL REPORT ON FILE IN LAB CONTAINS ADDITIONAL TEST SITE INFORMATION. Performed By: #### L 3300.6900, L501.9520 #### [facility] [address] [place], [address] CBC W/Diff, Automatedon 10- Absolute Lymph 3.46 X10 3/uL Normal 0.83-4.51 [facility] Comment on above: Performed By: #### L 100.0100 #### [facility] [address] [place], [address] Absolute Neut 7.7 X10 3/uL Normal 2.0-7.7 [facility] Comment on above: Performed By: #### L 100.0100 #### [facility] [address] [place], [address] Basophils/100 WBC (Bld) 0.2 % Normal 0-1 [facility] Comment on above: Performed By: #### L 100.0100 #### [facility] [address] [place], [address] Eosinophils/100 WBC (Bld) 1.4 % Normal 0-5 [facility] Comment on above: Performed By: #### L 100.0100 #### [facility] [address] [place], [address] Erythrocyte distribution width (RBC) [Ratio] 14.3 % Normal 11.6-14.6 [facility] Comment on above: Performed By: #### L 100.0100 #### [facility] [address] [place], [address] Hematocrit (Bld) [Volume fraction] 34.4 % Low 37-47 [facility] Comment on above: Performed By: #### L 100.0100 #### [facility] [address] [place], [address] Hemoglobin (Bld) [Mass/Vol] 11.0 g/dL Low 12.0-15.0 [facility] Comment on above: Performed By: #### L 100.0100 #### [facility] [address] [place], [address] IG% 0.600 Normal 0.0-0.9 [facility] Comment on above: Result Comment: IG% - Immature Granulocytes (promyelocytes, myelocytes and metamyelocytes) > 1% indicates that a LEFT SHIFT is Present. Performed By: #### L 100.0100 #### [facility] [address] [place], [address] Lymphocytes/100 WBC (Bld) 28.8 % Normal 19-41 [facility] Comment on above: Performed By: #### L 100.0100 #### [facility] [address] [place], [address] MCH (RBC) [Entitic mass] 25.5 pg Low 27.0-32.0 [facility] Comment on above: Performed By: #### L 100.0100 #### [facility] [address] [facility] [place], [address] MCHC (RBC) [Mass/Vol] 32.0 g/dL Normal 32-36 [facility] Comment on above: Performed By: #### L 100.0100 #### [facility] [address] [place], [address] MCV (RBC) [Entitic vol] 79.8 fL Low 81-99 [facility] Comment on above: Performed By: #### L 100.0100 #### [facility] [address] [place], [address] Monocytes/100 WBC (Bld) 4.8 % Normal 0-10 [facility] Comment on above: Performed By: #### L 100.0100 #### [facility] [address] [place], [address] Neutrophils/100 WBC (Bld) 64.2 % Normal 47-70 [facility] Comment on above: Performed By: #### L 100.0100 #### [facility] [address] [place], [address] Nucleated RBC (Bld) [#/Vol] 0 10*3/uL Normal 0-5 [facility] Comment on above: Performed By: #### L 100.0100 #### [facility] [address] [place], [address] Platelet mean volume (Bld) [Entitic vol] 9.9 fL Normal 6.2-12.0 [facility] Comment on above: Performed By: #### L 100.0100 #### [facility] [address] [place], [address] Platelets (Bld) [#/Vol] 355 10*3/uL Normal 150-450 [facility] Comment on above: Performed By: #### L 100.0100 #### [facility] [address] [place], [address] RBC (Bld) [#/Vol] 4.31 10*6/uL Normal 4.2-5.4 [facility] Comment on above: Performed By: #### L 100.0100 #### [facility] [address] [place], [address] RDW SD 41.3 fl Normal 35.1-43.9 [facility] Comment on above: Performed By: #### L 100.0100 #### [facility] [address] [place], [address] WBC (Bld) [#/Vol] 12.0 10*3/uL High 4.4-11.0 [facility] Comment on above: Performed By: #### L 100.0100 #### [facility] [address] [place], [address] Vp Outcomes Office Visit Reporton 12-06-2023 Vp Outcomes Office Visit Report [facility] [address], [address] [place] [address] OFFICE VISIT Date of Service: 12/06/23 MR#: [id number] Acct: [id number] Name: ULISES LOZANO Rep #: [id number] : 2000 Provider: TRISH Frye Age/Sex: 23/F Location: [facility] Status: Signed Intake Vital Signs 10/04/23 10:22 12/06/23 10:02 12/06/23 10:04 Height 5 ft 4 in 5 ft 4 in 5 ft 4 in Weight: 272 lb 282 lb 4 oz BMI 46.7 48.4 BP 128/82 H 161/84 H Blood Pressure Location Lt brachial Position Sitting Pulse 84 Pulse Source Monitor Pulse Oximetry (%) 96 Oxygen Delivery Method room air Intake Visit Reasons: Bleeding issues Cutter Brake Lining Required: No Is patient in pain?: No Allergies codeine Adverse Reaction (Intermediate, Verified 12/06/23 10:02) Itching Medications ???Medication ???Instructions ???Recorded ???Confirmed ???Type megestrol 20 mg tablet 20 mg PO QDAY #30 tabs 12/06/23 12/06/23 Rx Post menopausal: No Patient : No : No PFSH Medical History Abnormal results of thyroid function studies Obesity Oligomenorrhea PCOS (polycystic ovarian syndrome) Surgical History History of tonsillectomy Social History (Updated 12/06/23 @ 10:10 by Sydney Mo) adopted: No current occupational status: employed current occupation: [employer] current occupational exposures/hazards: No pets and animals: Yes pets and animals: dog(s) history of recent travel: No sexually active: Yes Smoking Status: Never smoker alcohol intake: never substance use type: does not use caffeine: Yes Type: coffee seatbelt use: always do you feel safe at home: Yes additional social history: : [employer] HPI Bleeding issues Details: ULISES LOZANO is a 23 year old who presents for follow up of irregular menstrual bleeding. She was previously seen in September for menstrual period greater than 28 days. She was started on an agyestin challenge at that time. She delayed the treatment and did not start for 3 weeks after. She completed treatment with no relief of her symptoms as her bleeding continued with the exception of a week with mild spotting during treatment. She reports she has had clots. She wears a super ultra overnight pad and saturating this every 1-2 hours. She is not currently sexually active due to her bleeding. She did have test completed at previous visit and negative. Ultrasound reviewed; 12mm lining. Prior to her bleeding that started in July she had not had period for close to 2 years. History 0 Elective abortions Hx Para Spontaneous abortions Hx # Term Pregnancies Ectopic pregnancies Hx # Pregnancies Multiple births # of living children ROS Const Constitutional: Reports weight gain and other (lightheaded at times); Denies body ache, chills, difficulty sleeping, fatigue, fever(s), headache(s), lethargy or weight loss Eyes Eyes: Denies change in vision Cardio Card: Denies leg edema or palpitations Resp Resp: Denies cough or dyspnea GI GI: Denies abdominal pain, bloating, constipation or nausea : Reports menorrhagia and metrorrhagia; Denies pelvic pain, sexual dysfunction, urinary incontinence, vaginal discharge, vaginal dryness, vaginal odor or vaginal pruritus Psych Psych: Denies anxiety or depression Endo Endo: Denies cold intolerance, excessive sweating, heat intolerance or polydipsia Ronaldo/Lymph Hematologic/Lymphatic : Denies easy bleeding and Denies easy bruising Exam Const General: cooperative, healthy appearing, comfortable and well developed HENNE Head: normal to inspection Eyes General: appearance normal, both eyes and all related structures Resp Effort Inspection: normal respiratory effort, able to speak in complete sentences and symmetric chest movement General: deferred (per patient; currently bleeding.) Skin General: no rashes or lesions noted Neuro General: patient alert, patient awake, patient oriented x3 and moves all extremities Extrem General: normal to inspection Psych Appearance: grossly normal and well kempt Affect: normal affect Speech and Movement: speech and movement normal Coding Level of Care Code Established Pt Off vis,est,level 4 Patient Type Established Diagnoses Abnormal results of thyroid function studies R94.6 Irregular menstrual bleeding N92.6 PCOS (polycystic ovarian syndrome) E28.2 Hypertension I10 Class 3 severe obesity due to excess calories with serious comorbidity and body mass index (BMI) of 45.0 to 49.9 in adult E66.01; Z68.42 Obesity type: due to excess calories Obesity classification: adult class 3 (B (more content not included)... Normal [facility] Thyroid Stim Hormone (TSH)on 12-06-2023 TSH 5.100 uIU/mL High 0.358-3.740 [facility] Comment on above: Performed By: #### L 3300.6900, L501.9520 #### [facility] [address] [place], [address] Covid 19 Resultson 1 SARS-CoV-2 (COVID-19) RNA JUMA+probe Ql (Unsp spec) POSITIVE COVID-19 Test Coronaviruses are common world-wide and are the cause of many common colds. SARS-COV2 is a new coronavirus that began circulating worldwide in 2019 so we are calling it COVID-19. It has been estimated that four out of five patients with COVID-19 will recover at home without the need for medical attention. Symptoms of COVID-19 may include cough, fever, shortness of breath, loss of taste or smell and other flu-like symptoms including chills, sore muscles, sore throat, and headache. Severe illness is more common in older people and people with other health problems such as high blood pressure, obesity, and immune system problems. If the test is positive, you have COVID-19. You will be contacted by the ordering physicians office and instructed to remain on home isolation, in accordance with CDC guidelines. You may also be contacted by the [facility] to see if any of your close contacts may have been exposed to the virus and need to quarantine. If the test is negative, you likely do not have COVID-19 at this time, but you still may have a different illness that can spread to other people (like Influenza, or the Flu) and could still be at risk for getting COVID-19. We recommend that you stay away from other people to limit the spread of illness until your symptoms are improving and you are fever-free for 24 hours without the use of fever lowering medications such as acetaminophen or ibuprofen. No test is 100% accurate so if you are still concerned you may have COVID-19, talk to your doctor about the need to continue to stay away from others. Medicines Unless your provider told you not to use the following: Acetaminophen (Tylenol and others) is generally safe. Anti-inflammatory medications, such as Ibuprofen (Advil or Motrin) or Naproxen (Aleve) can also be used. Jynw-qra-fratmbq cough and cold medicines can be used according to the instructions on the package. Some xfqm-mjb-kkhkoap medicines also contain acetaminophen. Make sure you are not taking more than your recommended dose. For those not hospitalized, there is no specific treatment available for this illness. Antibiotics do not treat Coronaviruses. Follow-Up Follow up with your doctor by scheduling a virtual visit or consider follow-up at one of our urgent care fever clinics. If you are having difficulty breathing, or are very weak and having difficulty standing, this is a medical emergency. Call 911 or have someone take you to the nearest emergency room immediately. If possible, wear a facemask. Additional guidance from the CDC for patients who tested POSITIVE for COVID-19 How to isolate: Isolate yourself in a specific room at home and limit your contact with others. Use a separate bathroom from other members of the household, when possible. Leave home only to get essential medical care. Do not go to work, school or public areas. Avoid using public transportation, ride-sharing, or taxis. Restrict contact with pets and other animals. If you must care for your pet or be around animals while you are sick, wash your hands before and after your interaction and wear a facemask. Make sure that shared spaces in the home have good airflow, such as by an air conditioner or an opened window, weather permitting. Personal Hygiene Procedures: Wear a face mask when in the same room as other people or pets. If a face mask interferes with your breathing, others should wear a mask when sharing space with you. Frequent hand-washing: wash your hands with soap and water for at least 20 seconds. If soap and water are not available, use alcohol-based hand automotive refinisher. Avoid touching your eyes, nose, and mouth with unwashed hands. Household Hygiene Procedures: Avoid sharing personal household items such as dishes, glassware, cups, eating utensils, towels or bedding with other people or pets in your home. After use, these items should be washed with soap and hot water. Disinfect all high-touch surfaces every day with antibacterial cleaning solutions such as Lysol wipes, bleach, cleansers, etc. High-touch surfaces include tabletops, doorknobs, bathroom fixtures, toilets, phones, keyboards, tablets and bedside tables. Immediately clean any surfaces that may have blood, poop or body fluids on them, using antibacterial cleaning solutions such as Lysol wipes, bleach, cleansers, etc. If clothing or bedding come into contact with blood, poop or body fluids, they should be washed immediately. Follow the directions on the laundry detergent and clothing labels but hot water is recommended when possible. Stopping home isolation precautions: If possible, consult your doctor before stopping home isolation precautions. According to the CDC, you can discontinue home isolation precautions when you have met both of these criteria: Your fever and respiratory symptoms have been gone for 24 cali (more content not included)... Normal [facility] CORONAVIRUS 2019 BY PCRon SARS-CoV-2 (COVID-19) RNA JUMA+probe Ql (Unsp spec) Detected Abnormal Not Detected [facility] Comment on above: Result Comment: . This assay is designed to detect the N, ORF1ab and/or S genes of SARS-CoV-2 via nucleic acid amplification. A Negative (NOT DETECTED) result does not preclude 2019-nCoV infection since the adequacy of sample collection and/or low viral burden may result in presence of viral nucleic acids below the clinical sensitivity of this test method. Negative (NOT DETECTED) result should not be used as the sole basis for treatment or other patient management decisions. Rather negative results should be combined with clinical observations, patient history, and epidemiological information to make patient management decisions. Fact sheet for providers: https://www.fda.gov/media/308722/download Fact sheet for patients: https://www.fda.gov/media/004522/download This test has received FDA Emergency Use Authorization (EUA) and has been verified by [facility] ([facility]). This test is only authorized for the duration of time that circumstances exist to justify the authorization of the emergency use of in vitro diagnostic tests for the detection of SARS-CoV-2 virus and/or diagnosis of COVID-19 infection under section 564(b)(1) of the Act, 21 U.S.C. 360bbb-3(b)(1), unless the authorization is terminated or revoked sooner. [facility] is certified under CLIA-88 as qualified to perform high complexity testing. Testing is performed in the [facility] laboratories located at [address] [place] [address]. Performed By: #### C OV19 #### [address] [place] [address] CORONAVIRUS 2019 BY PCRon DATE OF SYMPTOM ONSET [[id number]]? [id number] Normal [facility] Comment on above: Performed By: #### C OV19 #### [address] [place] [address] Lab Specimen Source Nasal, Nasopharyngeal Normal [facility] Comment on above: Performed By: #### C OV19 #### [address] [place] [address] Provider Note - ED v3on 12- Provider Note - ED v3 Provider Note: Chart Review HISTORY OF PRESENTING ILLNESS ULISES is a 20 year old Female and was seen by me at 15-Feb-2021 11:55. The historian is the patient. Triage Information: Most recent Vital Sign Value Date PAST MEDICAL HISTORY ALLERGIES/INTOLERANCE S: Allergy Allergen: codeine Type: Drug Reaction: Unknown HEALTH HISTORY: No known health issues. Family history: no pertinent history. Social history: non-smoker. 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 Also has a non-productive cough that she attributes to her PND. She denies any fever/chills, body aches, ear pain, headaches, abdominal pain, chest pain, wheezing/shortness of breath, rashes, urinary symptoms, nausea/vomiting, and diarrhea. Denies any lightheadedness or dizziness; no changes in mental status. No swelling in legs. Appetite is poor but is able to drink fluids without difficulty; denies any loss of sense of taste or smell. Reports feels like symptoms are unchanged since onset. Has been taking Nyquil with some temporary relief; no other lcui-wem-kldgxhj medications or home remedies for symptom management. Two coworkers recently tested positive for COVID, so she would like to be tested today. Reports she had COVID infection in Oct 2020; has not received the COVID-19 vaccine. REVIEW OF SYSTEMS 10 systems reviewed negative with exception of history of present illness listed above PHYSICAL EXAMINATION General: Mildly ill-appearing, well nourished female; alert and oriented; in no acute distress. Sitting comfortably on exam table. Non-dyspneic. Eyes: Pupils equal, round and reactive to light. No conjunctival erythema; no scleral icterus. HENT: + frontal and maxillary sinus tenderness; + audible nasal congestion. Airway patent, TMs with clear fluid bubbles bilat, and ear canals clear bilaterally. Nasal mucosa injected and edematous. Oral mucosa moist. Posterior pharynx pink but without vesicles or oropharyngeal exudate aside from PND. Tonsils absent. Uvula is midline. Managing oral secretions without difficulty. Neck: Supple. tender, mobile anterior cervical lymphadenopathy bilat. Trachea is midline. Respiratory: Respirations easy and unlabored, Breath sounds equal. Lungs are clear to auscultation; no wheezes, rhonchi, or rales; has good air movement throughout. Mild, non-productive cough noted. Non-dyspneic with ambulation; able to maintain SpO2. Cardiovascular: Normal rate, Regular rhythm. Normal S1S2. No m/r/g. No peripheral edema. Gastrointestinal: Soft, non-tender, non-distended; no palpable masses or organomegaly. Bowel sounds normoactive. Musculoskeletal: Grossly normal; appropriate for age. Integumentary: [place], warm, dry, and Intact. No rashes or skin discoloration appreciated. Good skin turgor. Neurologic: Alert and oriented, no gross deficits. Cognition and Speech: Oriented, Speech clear and coherent. Psychiatric: Cooperative, Appropriate mood & affect. MEDICAL DECISION MAKING Course: Worsening; stable. Impression/Plan: No red flags on exam today. I have reviewed the COVID-19 algorithm, and counseled pt on COVID-19 current recommendations. Symptoms consistent with viral sinusitis and associated cough, but reviewed other potential etiologies, and DIRECTOR TRANSITION swab obtained (using proper PPE) for COVID-19 testing to err on the side of caution. Due to severity and duration of sxs, rx for watch and wait Amoxicillin provided, with instructions to begin only if sxs not improving over the next few days. In the meantime, will start cough medication PRN. Instructed to push fluids, rest, and to use appropriate over the counter medications as needed for management of symptoms - saline nasal spray and M (more content not included)... Normal [facility] Vital Signs Date Time Vital Sign Value Performing Clinician Adelina campbell 09-19-2024 09:30-0400 Body height 162.[address] Edilia Irving MD Work Phone: [facility] 09-19-2024 09:30-0400 Body mass index (BMI) [Ratio] 49.1 kg/m2 Dr. Edilia Irving MD Work Phone: [facility] 09-19-2024 09:30-0400 Body weight 129.[address] Edilia Irving MD Work Phone: [facility] 09-19-2024 09:30-0400 Diastolic blood pressure 91 mm[Hg] Dr. Edilia Irving MD Work Phone: [facility] 09-19-2024 09:30-0400 Heart rate 94 /min Dr. Edilia Irving MD Work Phone: 0(016)[phone] [address] 09-19-2024 09:30-0400 SaO2% (BldA) [Mass fraction] 97 % Dr. Edilia Irving MD Work Phone: 9(792)233-965396 [address] 09-19-2024 09:30-0400 Systolic blood pressure 136 mm[Hg] Dr. Edilia Irving MD Work Phone: 6(666)770-990187 [place] [address] 05-02-2024 09:57-0400 Body height 162.[address] Edilia Irving MD Work Phone: 1(193)453-535087 [place] [address] 05-02-2024 09:57-0400 Body mass index (BMI) [Ratio] 48.6 kg/m2 Dr. Edilia Irving MD Work Phone: 4(759)050-843787 [place] [address] 05-02-2024 09:57-0400 Body weight 128.[address] Edilia Irving MD Work Phone: 4(134)374-479187 [place] [address] 05-02-2024 09:57-0400 Diastolic blood pressure 89 mm[Hg] Dr. Edilia Irving MD Work Phone: 9(788)373-791173 [place] [address] 05-02-2024 09:57-0400 Systolic blood pressure 146 mm[Hg] Dr. Edilia Irving MD Work Phone: 5(106)551-989387 [place] [address] 03-12-2024 10:40-0500 Body mass index (BMI) [Ratio] 47.2 kg/m2 Dr. Edilia Irving MD Work Phone: 3(805)203-464287 [place] [address] 03-12-2024 10:40-0500 Body weight 124.[address] Edilia Irving MD Work Phone: 0(124)204-243687 [place] [address] 01-22-2025 10:40-0500 Diastolic blood pressure 97 mm[Hg] Dr. Edilia Irving MD Work Phone: [facility] 03-12-2024 10:40-0500 Systolic blood pressure 145 mm[Hg] Dr. Edilia Irving MD Work Phone: [facility] 02-15-2021 13:05-0500 Body height 160 cm Text Entry Free [facility] 02-15-2021 13:05-0500 Body temperature 97.7 [degF] Text Entry Free [facility] 02-15-2021 13:05-0500 Diastolic blood pressure 93 mm[Hg] Text Entry Free [facility] 02-15-2021 13:05-0500 Heart rate 92 /min Text Entry Free [facility] 02-15-2021 13:05-0500 Respiratory rate 16 /min Text Entry Free [facility] 02-15-2021 13:05-0500 SaO2% (BldA) [Mass fraction] 98 % Text Entry Free [facility] 02-15-2021 13:05-0500 Systolic blood pressure 142 mm[Hg] Text Entry Free [facility] Encounters Encounter Date Encounter Type Care Provider Facility Start: 11-17-2024 End: 11-17-[address] Ed[facility] Start: 11-17-2024 End: 11-17-[address] [facility]: 11-17-2024 End: 11-17-2024 ambulatory Edilia Irving Facility:[facility] Start: 10-06-2024 End: 10-06-[address] Edilia Irving MD Work Phone: [facility] Start: 10-06-2024 End: 10-06-[address] [facility]: 10-06-2024 End: 10-06-2024 ambulatory Edilia Irving Facility:[facility] Start: 09-19-2024 End: 09-19-[address] Seth Camargo MD -[facility] Work Phone: Start: 09-19-2024 End: 09-19-[address] Edilia Irving MD Work Phone: -[facility] Start: 09-10-2024 End: 09-10-[address] Edilia Irving MD Work Phone: [facility] Start: 09-10-2024 End: 09-10-[address] Seth Camargo MD -[facility] Work Phone: Start: 09-10-2024 End: 09-10-2024 ambulatory Seth Camargo Facility:[facility] Start: 08-25-2024 End: 08-25-[address] Edilia Irving MD Work Phone: -[facility] Start: 08-25-2024 End: 08-25-[address] Nichelle Parsons DO -[facility] Start: 08-25-2024 End: 08-25-2024 ambulatory Edilia Irving Facility:[facility] Start: 07-25-2024 End: 07-25-[address] Edilia Irving MD Work Phone: [facility] Work Phone: Start: 07-25-2024 End: 07-25-[address] Nichelle Parsons DO -[facility] Work Phone: Start: 07-25-2024 End: 07-25-2024 ambulatory Edilia Irving Facility:[facility] Start: 05-22-2024 End: 05-22-[address] Edilia Irving MD Work Phone: [facility] Work Phone: Start: 05-22-2024 End: 05-22-[address] Seth Camargo MD -[facility] [place] Work Phone: Start: 05-22-2024 End: 05-22-2024 ambulatory [facility] Facility:[facility] Start: 05-02-2024 End: 05-02-[address] [facility] Work Phone: Start: 05-02-2024 End: 05-02-2024 ambulatory Edilia S Jolliff Facility:[facility] Start: 03-12-2024 End: 03-12-[address] Seth Camargo MD -[facility] Work Phone: Start: 03-12-2024 End: 03-12-2024 Patient encounter procedure Kristin [facility]AMB[facility] Work Phone: Start: 03-12-2024 End: 03-12-2024 ambulatory Edilia S Jolliff Facility:[facility] Start: 03-12-2024 End: 03-12-2024 ambulatory [facility] Facility:[facility] Start: 12-12-2023 End: 12-12-2023 ambulatory Edilia S Jolliff Facility:[facility] Start: 12-06-2023 End: 12-06-2023 ambulatory Edilia S Jolliff Facility:[facility] Start: 12-06-2023 End: 12-06-2023 ambulatory [facility] Facility:[facility] Start: 09-13-2021 End: 09-13-2021 Patient encounter procedure [facility], [facility] Start: 02-15-2021 End: 02-15-2021 Emergency department patient visit [facility] 02 Procedures Date Procedure Procedure Detail Performing Clinician Start: 11-17-[address] Edilia Irving MD Work Phone: Comment on above: Follicular phase 0.1 - 0.9 Luteal phase 1.8 - 23.9 Ovulation phase 0.1 - 12.0 First trimester 11.0 - 44.3 Second trimester 25.4 - 83.3 Third trimester 58.7 - 214.0 Postmenopausal 0.0 - 0.1Performed at: [address] [id number] Director: Alonso Ram PhD, Phone: [phone] Start: 10-06-[address] Edilia Irving MD Work Phone: Comment on above: Follicular phase 0.1 - 0.9 Luteal phase 1.8 - 23.9 Ovulation phase 0.1 - 12.0 First trimester 11.0 - 44.3 Second trimester 25.4 - 83.3 Third trimester 58.7 - 214.0 Postmenopausal 0.0 - 0.1Performed at: [facility] [id number] [place], [place] [id number] Director: Alonso Ram PhD, Phone: [phone] Start: 08-25-[address] Edilia Irving MD Work Phone: Comment on above: Follicular phase 0.1 - 0.9 Luteal phase 1.8 - 23.9 Ovulation phase 0.1 - 12.0 First trimester 11.0 - 44.3 Second trimester 25.4 - 83.3 Third trimester 58.7 - 214.0 Postmenopausal 0.0 - 0.1Performed at: [facility] [place], [place] [id number] Director: Alonso Ram PhD, Phone: [phone] Start: 07-25-[address] Edilia Irving MD Work Phone: Comment on above: Follicular phase 0.1 - 0.9 Luteal phase 1.8 - 23.9 Ovulation phase 0.1 - 12.0 First trimester 11.0 - 44.3 Second trimester 25.4 - 83.3 Third trimester 58.7 - 214.0 Postmenopausal 0.0 - 0.1Performed at: [facility] [place] [id number] Director: Alonso Ram PhD, Phone: [phone] Start: 09-13-2021 Transvaginal echography Plan of Treatment Date Care Activity Detail Author Start: 09-19-2024 T4 free measurement [facility] Start: 09-19-2024 Thyroid stimulating hormone measurement [facility] Payers Date Payer Category Payer Unknown [id number] 2023 Self-pay [id number] 2023 Unknown [id number] Unknown Unknown [id number] Unknown [id number] 2.16.8 [id number] Unknown [id number] 2.16.8 [id number] Unknown [id number] 2.16.8 [id number] Unknown [id number] 2.16.8 [id number] Unknown [id number] 2.16.8 [id number] Unknown [id number] 2.16.8 [id number] Unknown [id number] 2.16.8 [id number] Unknown [id number] 2.16.8 [id number] Unknown [id number] 2.16.8 [id number] Unknown [id number] 2.16.8 [id number] Unknown [id number] 2.16.8 [id number] Unknown [id number] 2.16.8 [id number] Unknown [id number] 2.16.8 [id number] Social History Date Type Detail Facility [facility] Tobacco smoking consumption unknown [facility] Start: 2000 Sex Assigned At Female [facility] Start: 12-26-2023 Tobacco smoking status NHIS Never smoked tobacco (finding) [facility] Start: 05-27-2024 Sex Female (finding) [facility] Sex Female [facility] Evaluation note 09-19-2024 Note Date & Type Note Facility 09-19-2024 Evaluation note Diagnosis Onset Date Resolution Hypothyroidism (acquired) chronic September 19, 2024 9:30am PCOS (polycystic ovarian syndrome) chronic September 19, 2024 9:30am [facility] Work Phone: Evaluation note 05-02-2024 Note Date & Type Note Facility 05-02-2024 Evaluation note Diagnosis Onset Date Resolution PCOS (polycystic ovarian syndrome) chronic May 02 9:43am [facility] Work Phone: Evaluation note 03-12-2024 Note Date & Type Note Facility 03-12-2024 Evaluation note Diagnosis Onset Date Resolution Hypothyroidism (acquired) acute March 12 10:24am Irregular menstrual bleeding acute March 12 10:24am Hypertension chronic February 10:24am PCOS (polycystic ovarian syndrome) chronic March 12 10:24am PCOS (polycystic ovarian syndrome) chronic May 02, 2024 9:43am [facility] Work Phone: Evaluation note Note Date & Type Note Facility Evaluation note No assessment information availa ble [facility] Work Phone: Evaluation note Note Date & Type Note Facility Evaluation note Diagnosis Onset Date Resolution Hypothyroidism (acquired) acute September 19, 2024 9:30am [facility] Work Phone: Reason for referral (narrative) Note Date & Type Note Facility Reason for referral (narrative) No reason for referral information available [facility] Work Phone: Summary Purpose Family History No Family History Records FoundNo Family History Records FoundNo Family History Records Found Advance Directives No Advanced Directives Records FoundNo Advanced Directives Records FoundNo Advanced Directives Records Found Chief Complaint and Reason for Visit Chief Complaint IRREGULAR MENSTRUATI ON Chief Complaint Admit Date Follow up AUB March 12, 2024 1 0:24am Fertility Consult May 02, 2024 9:4 3am E-ORDER May 22, 2024 9:33 am Reason for Visit Admit Date Hypothyroidism (acquired) March 12, 2024 10:24am Irregular menstrual bleeding February 10:24am Hypertension March 12, 2024 1 0:24am PCOS (polycystic ovarian syndrome) Janua ry 2024 10:24am PCOS (polycystic ovarian syndrome) May 02, 2024 9:43am Chief Complaint Admit Date Fertility Consult May 02, 2024 9:4 3am E-ORDER May 22, 2024 9:33 am [facility] July 25, 2024 8:11a m Reason for Visit Admit Date PCOS (polycystic ovarian syndrome) May 02, 2024 9:43am Chief Complaint Admit Date E-ORDER May 22, 2024 9:33 am [facility] July 25, 2024 8:11a m [facility] September 10, 2024 11:4 3am Chief Complaint Admit Date E-ORDER May 22, 2024 9:33 am [facility] July 25, 2024 8:11a m [facility] September 10, 2024 11:4 3am 1 Y FU September 19, 2024 9:3 0am Reason for Visit Admit Date Hypothyroidism (acquired) September 19 9:30am Chief Complaint Admit Date INT LAB[facility] July 25, 2024 8:11a m [facility] September 10, 2024 11:4 3am 1 Y FU September 19, 2024 9:3 0am Reason for Visit Admit Date Hypothyroidism (acquired) September 19 9:30am PCOS (polycystic ovarian syndrome) Augus t 2024 9:30am Additional Source Comments <item> Privacy Markings (unrecogniz ed section and content) Section Author: Miri Mendieta PROHIBITION ON REDISCLOSURE OF CONFIDENTIAL INFORMATION This notice accompanies a disclosure of information concerning a client made to you with the consent of such client. INFORMATION SOURCE (unrecogn ized section and content) DATE CREATED AUTHOR 02/17/2021 [facility] DATE CREATED AUTHOR AUTHOR'S ORGANIZ ATION 02/18/2021 [facility] DATE CREATED AUTHOR AUTHOR'S ORGANIZ ATION 11/22/2024 [facility] Goals (unrecognized section and content) Goals may be documented in a n alternate sectionGoals may be documented in an alternate sectionGoals may be documented in an alternate sectionGoals may be documented in an alternate sectionGoals may be documented in an alternate sectionGoals may be documented in an alternate sectionGoals may be documented in an alternate sectionGoals may be documented in an alternate section Care Teams (unrecognized sec tion and content) Team Status: Active Member Role Status Dates Dr. Kasi Farley MD Family Provider Active Dr. Edilia Irving MD Primary Care Provider Active Team Status: Inactive Member Role Status Dates Dr. Edilia Irving MD Primary Care Provider Active Start: March 12, 2024 End: March 12, 2024 Dr. Edilia Irving MD Referring Provider Active Start: March 12, 2024 End: March 12, 2024 TRISH Pollack Attending Provider Active Start: March 12, 2024 End: March 12, 2024 Team Status: Inactive Member Role Status Dates Dr. Edilia Irving MD Primary Care Provider Active Start: March 12, 2024 End: March 12, 2024 Dr. Seth Camargo MD Attending Provider Active Sta rt: March 12, 2024 End: March 12, 2024 Dr. Seth Camargo MD Referring Provider Active Sta rt: March 12, 2024 End: March 12, 2024 Team Status: Inactive Member Role Status Dates Dr. Edilia Irving MD Primary Care Provider Active Start: May 02, 2024 End: May 02, 2024 Dr. Edilia Irving MD Referring Provider Active Start: May 02, 2024 End: May 02, 2024 Dr. Nichelle Parsons DO Attending Provider Activ e Start: May 02, 2024 End: May 02, 2024 Team Status: Inactive Member Role Status Dates Dr. Edilia Irving MD Primary Care Provider Active Start: May 22, 2024 End: May 22, 2024 Dr. Seth Camargo MD Attending Provider Active Sta rt: May 22, 2024 End: May 22, 2024 Dr. Seth Camargo MD Referring Provider Active Sta rt: May 22, 2024 End: May 22, 2024 Team Status: Inactive Member Role Status Dates Dr. Edilia Irving MD Primary Care Provider Active Start: July 25, 2024 End: July 25, 2024 Dr. Nichelle Parsons DO Attending Provider Activ e Start: July 25, 2024 End: July 25, 2024 Dr. Nichelle Parsons DO Referring Provider Activ e Start: July 25, 2024 End: July 25, 2024 Team Status: Active Member Role/Relationship Status Dates Dr. Kasi Farley MD Family Provider Active Dr. Edilia Irving MD Primary Care Provider Active Team Status: Inactive Member Role/Relationship Status Dates Dr. Edilia Irving MD Primary Care Provider Active Start: May 02, 2024 End: May 02, 2024 Dr. Edilia Irving MD Referring Provider Active Start: May 02, 2024 End: May 02, 2024 Dr. Nichelle Parsons DO Attending Provider Activ e Start: May 02, 2024 End: May 02, 2024 Team Status: Inactive Member Role/Relationship Status Dates Dr. Edilia Irving MD Primary Care Provider Active Start: May 22, 2024 End: May 22, 2024 Dr. Seth Camargo MD Attending Provider Active Sta rt: May 22, 2024 End: May 22, 2024 Dr. Seth Camargo MD Referring Provider Active Sta rt: May 22, 2024 End: May 22, 2024 Team Status: Inactive Member Role/Relationship Status Dates Dr. Edilia Irving MD Primary Care Provider Active Start: July 25, 2024 End: July 25, 2024 Dr. Nichelle Parsons DO Attending Provider Activ e Start: July 25, 2024 End: July 25, 2024 Dr. Nichelle Parsons DO Referring Provider Activ e Start: July 25, 2024 End: July 25, 2024 Team Status: Inactive Member Role/Relationship Status Dates Dr. Edilia Irving MD Primary Care Provider Active Start: August 25, 2024 End: August 25, 2024 Dr. Nichelle Parsons DO Attending Provider Activ e Start: August 25, 2024 End: August 25, 2024 Dr. Nichelle Parsons DO Referring Provider Activ e Start: August 25, 2024 End: August 25, 2024 Team Status: Inactive Member Role/Relationship Status Dates Dr. Edilia Irving MD Primary Care Provider Active Start: May 22, 2024 End: May 22, 2024 Dr. Seth Camargo MD Attending Provider Active Sta rt: May 22, 2024 End: May 22, 2024 Dr. Seth Camargo MD Referring Provider Active Sta rt: May 22, 2024 End: May 22, 2024 Team Status: Inactive Member Role/Relationship Status Dates Dr. Edilia Irving MD Primary Care Provider Active Start: July 25, 2024 End: July 25, 2024 Dr. Nichelle Parsons DO Attending Provider Activ e Start: July 25, 2024 End: July 25, 2024 Dr. Nichelle Parsons DO Referring Provider Activ e Start: July 25, 2024 End: July 25, 2024 Team Status: Inactive Member Role/Relationship Status Dates Dr. Edilia Irving MD Primary Care Provider Active Start: August 25, 2024 End: August 25, 2024 Dr. Nichelle Parsons DO Attending Provider Activ e Start: August 25, 2024 End: August 25, 2024 Dr. Nichelle Parsons DO Referring Provider Activ e Start: August 25, 2024 End: August 25, 2024 Team Status: Inactive Member Role/Relationship Status Dates Dr. Edilia Irving MD Primary Care Provider Active Start: September 10, 2024 End: September 10, 2024 Dr. Seth Camargo MD Attending Provider Active Sta rt: September 10, 2024 End: September 10, 2024 Dr. Seth Camargo MD Referring Provider Active Sta rt: September 10, 2024 End: September 10, 2024 Team Status: Inactive Member Role/Relationship Status Dates Dr. Edilia Irving MD Primary Care Provider Active Start: September 19, 2024 End: September 19, 2024 Dr. Edilia Irving MD Referring Provider Active Start: September 19, 2024 End: September 19, 2024 Dr. Seth Camargo MD Attending Provider Active Sta rt: September 19, 2024 End: September 19, 2024 Team Status: Active Member Role/Relationship Status Dates Dr. Edilia Irving MD Primary Care Provider Active Team Status: Inactive Member Role/Relationship Status Dates Dr. Edilia Irving MD Primary Care Provider Active Start: July 25, 2024 End: July 25, 2024 Dr. Nichelle Parsons DO Attending Provider Activ e Start: July 25, 2024 End: July 25, 2024 Dr. Nichelle Parsons DO Referring Provider Activ e Start: July 25, 2024 End: July 25, 2024 Team Status: Inactive Member Role/Relationship Status Dates Dr. Edilia Irving MD Primary Care Provider Active Start: August 25, 2024 End: August 25, 2024 Dr. Nichelle Parsons DO Attending Provider Activ e Start: August 25, 2024 End: August 25, 2024 Dr. Nichelle Parsons DO Referring Provider Activ e Start: August 25, 2024 End: August 25, 2024 Team Status: Inactive Member Role/Relationship Status Dates Dr. Edilia Irving MD Primary Care Provider Active Start: September 10, 2024 End: September 10, 2024 Dr. Seth Camargo MD Attending Provider Active Sta rt: September 10, 2024 End: September 10, 2024 Dr. Seth Camargo MD Referring Provider Active Sta rt: September 10, 2024 End: September 10, 2024 Team Status: Inactive Member Role/Relationship Status Dates Dr. Edilia Irving MD Primary Care Provider Active Start: September 19, 2024 End: September 19, 2024 Dr. Edilia Irving MD Referring Provider Active Start: September 19, 2024 End: September 19, 2024 Dr. Seth Camargo MD Attending Provider Active Sta rt: September 19, 2024 End: September 19, 2024 Team Status: Inactive Member Role/Relationship Status Dates Dr. Edilia Irving MD Primary Care Provider Active Start: October 06, 2024 End: October 06, 2024 Dr. Nichelle Parsons DO Attending Provider Activ e Start: October 06, 2024 End: October 06, 2024 Team Status: Active Member Role/Relationship Status Dates Dr. Edilia Irving MD Primary care physician Active Team Status: Inactive Member Role/Relationship Status Dates Dr. Edilia Irving MD Primary care physician Active Start: July 25, 2024 End: July 25, 2024 Dr. Nichelle Parsons DO Attending physician Acti ve Start: July 25, 2024 End: July 25, 2024 Dr. Nichelle Parsons DO Referring Provider Activ e Start: July 25, 2024 End: July 25, 2024 Team Status: Inactive Member Role/Relationship Status Dates Dr. Edilia Irving MD Primary care physician Active Start: August 25, 2024 End: August 25, 2024 Dr. Nichelle Parsons DO Attending physician Acti ve Start: August 25, 2024 End: August 25, 2024 Dr. Nichelle Parsons DO Referring Provider Activ e Start: August 25, 2024 End: August 25, 2024 Team Status: Inactive Member Role/Relationship Status Dates Dr. Edilia Irving MD Primary care physician Active Start: September 10, 2024 End: September 10, 2024 Dr. Seth Camargo MD Attending physician Active St art: September 10, 2024 End: September 10, 2024 Dr. Seth Camargo MD Referring Provider Active Sta rt: September 10, 2024 End: September 10, 2024 Team Status: Inactive Member Role/Relationship Status Dates Dr. Edilia Irving MD Primary care physician Active Start: September 19, 2024 End: September 19, 2024 Dr. Edilia Irving MD Referring Provider Active Start: September 19, 2024 End: September 19, 2024 Dr. Seth Camargo MD Attending physician Active St art: September 19, 2024 End: September 19, 2024 Team Status: Inactive Member Role/Relationship Status Dates Dr. Edilia Irving MD Primary care physician Active Start: October 06, 2024 End: October 06, 2024 Dr. Nichelle Parsons DO Attending physician Acti ve Start: October 06, 2024 End: October 06, 2024 Team Status: Inactive Member Role/Relationship Status Dates Dr. Edilia Irving MD Primary care physician Active Start: November 17, 2024 End: November 17, 2024 Dr. Nichelle Parsons DO Attending physician Active Start: October End: November 17, 2024 Dr. Nichelle Parsons DO Referring Provider Active Start: October End: November 17, 2024 FOR RECORDS PERTAINING TO PATIENTS WHO ARE OR HAVE BEEN ENROLLED IN A CHEMICAL DEPENDENCY/SUBSTANCEABUSE PROGRAM, SOME INFORMATION MAY BE OMITTED. This clinical summary was aggregated from multiple sources. Caution should be exercised in using it in the provision of clinical care. This summary normalizes information from multiple sources, and as a consequence, information in this document may materially change the coding, format and clinical context of patient data. In addition, data may be omitted in some cases. CLINICAL DECISIONS SHOULD BE BASED ON THE PRIMARY CLINICAL RECORDS. [employer] [facility]. provides no warranty or guarantee of the accuracy or completeness of information in this document.
--- OUTSIDE RECORDS SUMMARY | 2024-12-05 09:54 | XMS RPT_ITS | CCD ---
Author Organization [facility] Care Team Providers Care Employment Coach Name Role Phone Free, Text Entry Unavailable [...] Dr. Edilia Bonilla Primary Care Physician [phone] Dr. Nichelle Parsons DO Attending Physician Dr. Seth Camargo MD Attending Physician Allergies Allergy Classification Reported Allergen(s) Allergy Type Date of Onset Reaction(s) Facility (8 sources) Codeine Drug Allergy 5 Unknown, Itching [facility] (1 source) Codeine Drug Allergy 5 [facility] Repository Medications Current Medications Medication Drug [...] 09-30-20 25 PROGESTERONE 0.9 ng/mL Normal . [facility] Comment on above: Order Comment: N Result Comment: Foll icular phase 0.1 - 0.9 Luteal phase 1.8 - 23.9 Ovulation phase 0.1 - 12.0 First trimester 11.0 - 44.3 Second trimester 25.4 - 83.3 Third trimester 58.7 - 214.0 Postmenopausal 0.0 - 0.1 Performed at: - [facility] [id number] Commercial Green Building Architect: Alonso Ram PhD, Phone: [phone] Performed By: #### L 506.7967, Q690.3799 #### [facility] Laboratory [address] [place], [place], [address] PROGESTERONE 4317on 10-08-19 PROGESTERONE 0.1 ng/mL Normal . [facility] Comment on above: Order Comment: N Result Comment: Foll icular phase 0.1 - 0.9 Luteal phase 1.8 - 23.9 Ovulation phase 0.1 - 12.0 First trimester 11.0 - 44.3 Second trimester 25.4 - 83.3 Third trimester 58.7 - 214.0 Postmenopausal 0.0 - 0.1 Performed at: [facility] [address] [id number] Commercial Green Building Architect: Alonso Ram PhD, Phone: [phone] Performed By: #### L 897.1871, Z649.9129 #### [facility] [address] [place], [place], [address] Endocrinology Visit Reporton 09-19-2024 Endocrinology Visit Report [facility] [address] [place] [address] OFFICE VISIT Date of Service: 09/19/24 MR#: [id number] Acct: [id number] Name: LOZANOULISES ANN-MARIE Rep #: [id number] : 2000 Provider: Lillian Horne Age/Sex: 23/F Location: [facility] Status: Signed Intake Vital Signs 12/06/23 10:04 [...] Yes additional social history: : Lyle - Legal Billing Coordinator HPI HPI Chief Complaint: PCOS Details: ULISES [...] (1) Hypothyroidi (more content not included)... Normal [facility] T4 Free Directon 09-10-2024 T4 FREE DIRECT 1.60 ng/dL High 0.76-1.46 [facility] Comment on above: Performed By: #### L 506.0400, L501.9520 #### [facility] Laboratory [facility] [place], [address] T4 freeOrdered By: Seth Camargo on 09-10-2024 Free T4 [Mass/Vol] 1.60 ng/dL High 0.76-1.46 [facility] TSH DL <= 0.005 mIU/L QnOrde red By: Seth Camargo on 09-10-2024 TSH Qn 1.890 uIU/mL 0.300-4.200 [facility] Thyroid Stim Hormone (TSH)on 09-10-2024 TSH 1.890 uIU/mL Normal 0.300-4.200 [facility] Comment on above: Performed By: #### L 506.0400, L501.9520 #### [facility] [address] [place], [place], [id number] PROGESTERONE 4317on 08-27-19 25 PROGESTERONE 0.3 ng/mL Normal . [facility] Comment on above: Order Comment: N Result Comment: Foll icular phase 0.1 - 0.9 Luteal phase 1.8 - 23.9 Ovulation phase 0.1 - 12.0 First trimester 11.0 - 44.3 Second trimester 25.4 - 83.3 Third trimester 58.7 - 214.0 Postmenopausal 0.0 - 0.1 Performed at: [address] [id number] Commercial Green Building Architect: Alonso Ram PhD, Phone: [phone] Performed By: #### L 506.0400, L519.8620 #### [facility] [address] [place], [place], [address] PROGESTERONE 4317on -09-07 25 PROGESTERONE 6.2 ng/mL Normal . [facility] Comment on above: Order Comment: N21 d ay progesterone Result Comment: Foll icular phase 0.1 - 0.9 Luteal phase 1.8 - 23.9 Ovulation phase 0.1 - 12.0 First trimester 11.0 - 44.3 Second trimester 25.4 - 83.3 Third trimester 58.7 - 214.0 Postmenopausal 0.0 - 0.1 Performed at: [address] [id number] Commercial Green Building Architect: Alonso Ram PhD, Phone: [phone] Performed By: #### L 506.0400, L596.5820 #### [facility] [address] [place], [place], [id number] T4 Free Directon 05-22-2024 T4 FREE DIRECT 1.40 ng/dL Normal 0.76-1.46 [facility] Comment on above: Performed By: #### L 506.0400, L501.9520 #### [facility] [address] [place], [address] T4 freeOrdered By: Seth Camargo on 05-22-2024 Free T4 [Mass/Vol] 1.40 ng/dL 0.76-1.46 [facility] TSH DL <= 0.005 mIU/L QnOrde red By: Seth Camargo on 05-22-2024 Thyroid Stimulating Hormone (TSH) 2.060 uIU/mL 0.300-4.200 [facility] TSH Qn 2.060 uIU/mL 0.300-4.200 [facility] Thyroid Stim Hormone (TSH)on 05-22-2024 TSH 2.060 uIU/mL Normal 0.300-4.200 [facility] Comment on above: Performed By: #### L 506.0400, L501.9520 #### [facility] [address] [place], [address] Lab Support Service Tech Office Visit Reporton 05-02-2024 Lab Support Service Tech Office Visit Report [facility] [address], [address] [place] [address] OFFICE VISIT Date of Service: 05/02/24 MR#: [id number] Acct: [id number] Name: BLAKEULISESAYLIN JACOBSEN Rep #: [id number] : 2000 Provider: Dr. Nichelle Cameron DO Age/Sex: 23/F Location: [facility] Status: Signed Intake Vital Signs 03/12/24 10:41 05/02/24 09:57 05/02/24 09:57 Height 5 ft 4 in 5 ft 4 in 5 ft 4 in Weight: 283 lb 6 oz BMI 48.6 BP 146/89 H Intake Visit Reasons: Fertility Consult Marine Engineering Consultant Required: No Is patient in pain?: No [...] home: Yes additional social history: : Lyle Coiney Legal Billing Coordinator [facility] Fertility Consult Details: ULISES LOZANO is [...] Hassan Signature: Date (if applicable) CC: Normal [facility] Direct serum free thyroxine (FT4) measurementOrdered By: Seth Camargo on 03-12-2024 Free T4 [Mass/Vol] 1.60 ng/dL High 0.76-1.46 [facility] Laboratory - Chemistry and C hemistry - challengeon 03-12-2024 HCG ( test) Ql (U) Negative [facility] Lab Support Service Tech Office Visit Reporton 03-12-2024 Lab Support Service Tech Office Visit Report [facility] [address], [address] [place] [address] OFFICE VISIT Date of Service: 03/12/24 MR#: [id number] Acct: [id number] Name: LOZANOULISES JACOBSEN Rep #: [id number] : 2000 Provider: TRISH Frye Age/Sex: 23/F Location: [facility] Status: Signed Intake Vital Signs 12/06/23 10:04 12/26/23 10:02 03/12/24 10:40 03/12/24 10:41 Height 5 ft 4 in 5 ft 4 in 5 ft 4 in 5 ft 4 in Weight: 275 lb BMI 47.2 BP 145/97 H Intake Visit Reasons: Follow up AUB Marine Engineering Consultant Required: No Is patient in pain?: No [...] Yes additional social history: : Lyle - Legal Billing Coordinator [facility] Follow up [facility]UB Details: ULISES LOZANO [...] Cosigner Signature: Date (if applicable) CC: Normal [facility] T4 Free Directon 03-12-2024 T4 FREE DIRECT 1.60 ng/dL High 0.76-1.46 [facility] Comment on above: Performed By: #### L 506.0400, L501.9520 #### [facility] [address] [place], [address] TSH QnOrdered By: Seth Camargo on 03-12-2024 Thyroid Stimulating Hormone (TSH) 0.022 uIU/mL Low 0.358-3.740 [facility] Thyroid Stim Hormone (TSH)on 03-12-2024 TSH 0.022 uIU/mL Low 0.358-3.740 [facility] Comment on above: Performed By: #### L 506.0400, L501.9520 #### [facility] [address] [place], [place], [address] Pelvic w/ Transvaginalon Pelvic w/ Transvaginal [facility] [address] [place], [place] [address] Pelvic w/ Transvaginal MR#: [id number] Acct: [id number] Name: ULISES LOZANO Rep #: [id number] : 2000 F 23 From: Jacob woods MD PCP: Dr. Edilia Irving MD Status: [facility] Study: Pelvic w/ Transvaginal Date of Exam: 12/12/23 Exam# [id number] Ordering Dr: Kristin Collins SALES AND MARKETING ENGINEER-C [id number] STUDY: ULTRASOUND OF THE FEMALE PELVIS - [...] CC: TRISH Collins; Dr. Edilia Irving MD Carbide Grinder: Signed [facility] Thyroid Peroxidase ABon 10-2 THYR PEROX AB [facility] Comment on above: Result Comment: TEST RESULTS LIMITS Thyroid Peroxidase (TPO) Ab 11 IU/mL 0-34 TESTING PERFORMED AT [facility]. ORIGINAL REPORT ON FILE IN LAB CONTAINS ADDITIONAL TEST SITE INFORMATION. Performed By: #### L 3300.6900, L501.9520 #### [facility] [address] [place], [address] CBC W/Diff, Automatedon 10- Absolute Lymph 3.46 X10 3/uL Normal 0.83-4.51 [facility] Comment on above: Performed By: #### L 100.0100 #### [facility] [address] [place], [address] Absolute Neut 7.7 X10 3/uL Normal 2.0-7.7 [facility] Comment on above: Performed By: #### L 100.0100 #### [facility] [address] [place], [address] Basophils/100 WBC (Bld) 0.2 % Normal 0-[address] [facility] Comment on above: Performed By: #### L 100.0100 #### [facility] [address] [place], [address] Eosinophils/100 WBC (Bld) 1.4 % Normal 0-5 [facility] Comment on above: Performed By: #### L 100.0100 #### [facility] [address] [place], [address] Erythrocyte distribution width (RBC) [Ratio] 14.3 % Normal 11.6-14.6 [facility] Comment on above: Performed By: #### L 100.0100 #### [facility] [address] [place], [address] Hematocrit (Bld) [Volume fraction] 34.4 % Low 37-47 [facility] Comment on above: Performed By: #### L 100.0100 #### [facility] [address] [place], [address] Hemoglobin (Bld) [Mass/Vol] 11.0 g/dL Low 12.0-15.0 [facility] Comment on above: Performed By: #### L 100.0100 #### [facility] [address] [place], [address] IG% 0.600 Normal 0.0-0.9 [facility] Comment on above: Result Comment: IG% - Immature Granulocytes (promyelocytes, myelocytes and metamyelocytes) > 1% indicates that a LEFT SHIFT is Present. Performed By: #### L 100.0100 #### [facility] [address] [place], [address] Lymphocytes/100 WBC (Bld) 28.8 % Normal 19-41 [facility] Comment on above: Performed By: #### L 100.0100 #### [facility] [address] [place], [address] MCH (RBC) [Entitic mass] 25.5 pg Low 27.0-32.0 [facility] Comment on above: Performed By: #### L 100.0100 #### [facility] [address] [facility] [place], [address] MCHC (RBC) [Mass/Vol] 32.0 g/dL Normal 32-36 [facility] Comment on above: Performed By: #### L 100.0100 #### [facility] [address] [place], [address] MCV (RBC) [Entitic vol] 79.8 fL Low 81-[address] [facility] Comment on above: Performed By: #### L 100.0100 #### [facility] [address] [place], [address] Monocytes/100 WBC (Bld) 4.8 % Normal 0-[address] [facility] Comment on above: Performed By: #### L 100.0100 #### [facility] [address] [place], [address] Neutrophils/100 WBC (Bld) 64.2 % Normal 47-70 [facility] Comment on above: Performed By: #### L 100.0100 #### [facility] [address] [place], [address] Nucleated RBC (Bld) [#/Vol] 0 10*3/uL Normal 0-5 [facility] Comment on above: Performed By: #### L 100.0100 #### [facility] [address] [place], [address] Platelet mean volume (Bld) [Entitic vol] 9.9 fL Normal 6.2-12.0 [facility] Comment on above: Performed By: #### L 100.0100 #### [facility] [address] [place], [address] Platelets (Bld) [#/Vol] 355 10*3/uL Normal 150-450 [facility] Comment on above: Performed By: #### L 100.0100 #### [facility] [address] [place], [address] RBC (Bld) [#/Vol] 4.31 10*6/uL Normal 4.2-5.4 [facility] Comment on above: Performed By: #### L 100.0100 #### [facility] [address] [place], [address] RDW SD 41.3 fl Normal 35.1-43.9 [facility] Comment on above: Performed By: #### L 100.0100 #### [facility] [address] [place], [address] WBC (Bld) [#/Vol] 12.0 10*3/uL High 4.4-11.0 [facility] Comment on above: Performed By: #### L 100.0100 #### [facility] [address] [place], [address] Lab Support Service Tech Office Visit Reporton 12-06-2023 Lab Support Service Tech Office Visit Report [facility] [address], [address] [place] [address] OFFICE VISIT Date of Service: 12/06/23 MR#: [id number] Acct: [id number] Name: ULISES LOZANO Rep #: [id number] : 2000 Provider: TIRSH Frye Age/Sex: 23/F Location: [facility] Status: Signed Intake Vital Signs 10/04/23 10:22 [...] room air Intake Visit Reasons: Bleeding issues Marine Engineering Consultant Required: No Is patient in pain?: No [...] Yes additional social history: : Lyle - Legal Billing Coordinator HPI Bleeding issues Details: ULISES LOZANO is [...] cooperative, healthy appearing, comfortable and well developed HENNM Head: normal to inspection Eyes General: appearance [...] 3 (B (more content not included)... Normal [facility] Thyroid Stim Hormone (TSH)on 12-06-2023 TSH 5.100 uIU/mL High 0.358-3.740 [facility] Comment on above: Performed By: #### L 3300.6900, L501.9520 #### [facility] [address] [place], [address] Covid 19 Resultson 1 SARS-CoV-2 (COVID-19) RNA [...] You may also be contacted by the [facility] to see if any of [...] or Naproxen (Aleve) can also be used. Ipoa-usd-sjxjxje cough and cold medicines can be used according to the instructions on the package. Some fxzi-sdq-vyjdaep medicines also contain acetaminophen. Make sure you [...] water are not available, use alcohol-based hand seasonal recruiter. Avoid touching your eyes, nose, and mouth [...] 24 cali (more content not included)... Normal [facility] CORONAVIRUS 2019 BY PCRon SARS-CoV-2 (COVID-19) RNA JUMA+probe Ql (Unsp spec) Detected Abnormal Not Detected [facility] Comment on above: Result Comment: . This [...] patient management decisions. Fact sheet for providers: https://www.fda.gov/media/194611/download Fact sheet for patients: https://www.fda.gov/media/478002/download This test has received FDA Emergency Use Authorization (EUA) and has been verified by [facility] ([facility]). This test is only authorized for the duration of time that circumstances exist to justify the authorization of the emergency use of in vitro diagnostic tests for the detection of SARS-CoV-2 virus and/or diagnosis of COVID-19 infection under section 564(b)(1) of the Act, 21 U.S.C. 360bbb-3(b)(1), unless the authorization is terminated or revoked sooner. [facility] is certified under CLIA-88 as qualified to perform high complexity testing. Testing is performed in the [facility] laboratories located at [address] [place] [address]. Performed By: #### C OV19 #### [address] [place] [address] CORONAVIRUS 2019 BY PCRon DATE OF SYMPTOM ONSET [YYYYMMDD]? [id number] Normal [facility] Comment on above: Performed By: #### C OV19 #### [address] [place] [address] Lab Specimen Source Nasal, Nasopharyngeal Normal [facility] Comment on above: Performed By: #### C OV19 #### [address] [place] [address] Provider Note - ED v3on 12- Provider [...] history. Social history: non-smoker. 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 SET OFF BLOCKER: Is : no Is : no CRITICAL CARE VITAL SIGNS: T PRBP SpO2O2(LPM) %FiO2 Method 15-Feb-2021 11:05:[id number]/ 93 98 MDM MDM/ED COURSE: This note [...] Nyquil with some temporary relief; no other pwdl-apt-zoayacp medications or home remedies for symptom management. [...] Musculoskeletal: Grossly normal; appropriate for age. Integumentary: [place], warm, dry, and Intact. No rashes or [...] cough, but reviewed other potential etiologies, and SALES AND MARKETING ENGINEER swab obtained (using proper PPE) for COVID-19 [...] and M (more content not included)... Normal [facility] Vital Signs Date Time Vital Sign Value Performing Clinician Adelina campbell 09-19-2024 09:30-0400 Body height 162.[address] Edilia Irving MD Work Phone: [facility] 09-19-2024 09:30-0400 Body mass index (BMI) [Ratio] 49.1 kg/m2 Dr. Edilia Irving MD Work Phone: [facility] 09-19-2024 09:30-0400 Body weight 129.[address] Edilia Irving MD Work Phone: [facility] 09-19-2024 09:30-0400 Diastolic blood pressure 91 mm[Hg] Dr. Edilia Irving MD Work Phone: [facility] 09-19-2024 09:30-0400 Heart rate 94 /min Dr. Edilia Irving MD Work Phone: 4(706)[phone] [address] 09-19-2024 09:30-0400 SaO2% (BldA) [Mass fraction] 97 % Dr. Edilia Irving MD Work Phone: [phone])404-555649 [address] 09-19-2024 09:30-0400 Systolic blood pressure 136 mm[Hg] Dr. Edilia Irving MD Work Phone: 7(942)227-905862 [place] [address] 05-02-2024 09:57-0400 Body height 162.[address] Edilia Irving MD Work Phone: 3(785)[phone] [place] [address] 05-02-2024 09:57-0400 Body mass index (BMI) [Ratio] 48.6 kg/m2 Dr. dEilia Irving MD Work Phone: 3(731)[phone] [place] [address] 05-02-2024 09:57-0400 Body weight 128.[address] Edilia Irving MD Work Phone: 6(019)689-994962 [place] [address] 05-02-2024 09:57-0400 Diastolic blood pressure 89 mm[Hg] Dr. Edilia Irving MD Work Phone: 3(358)455-933998 [place] [address] 05-02-2024 09:57-0400 Systolic blood pressure 146 mm[Hg] Dr. Edilia Irving MD Work Phone: 2(068)060-364962 [place] [address] 03-12-2024 10:40-0500 Body mass index (BMI) [Ratio] 47.2 kg/m2 Dr. Edilia Irving MD Work Phone: 0(013)[phone] [place] [address] 03-12-2024 10:40-0500 Body weight 124.[address] Edilia Irving MD Work Phone: 0([phone])[phone] [place] [address] 01-22-2025 10:40-0500 Diastolic blood pressure 97 mm[Hg] Dr. Edilia Irving MD Work Phone: [facility] 03-12-2024 10:40-0500 Systolic blood pressure 145 mm[Hg] Dr. Edilia Irving MD Work Phone: [facility] 02-15-2021 13:05-0500 Body height 160 cm Text Entry Free [facility] 02-15-2021 13:05-0500 Body temperature 97.7 [degF] Text Entry Free [facility] 02-15-2021 13:05-0500 Diastolic blood pressure 93 mm[Hg] Text Entry Free [facility] 02-15-2021 13:05-0500 Heart rate 92 /min Text Entry Free [facility] 02-15-2021 13:05-0500 Respiratory rate 16 /min Text Entry Free [facility] 02-15-2021 13:05-0500 SaO2% (BldA) [Mass fraction] 98 % Text Entry Free [facility] 02-15-2021 13:05-0500 Systolic blood pressure 142 mm[Hg] Text Entry Free [facility] Encounters Encounter Date Encounter Type Care Provider Facility Start: 11-17-2024 End: 11-17-[address] Edilia Irving MD Work Phone: -lab [facility] Start: 11-17-2024 End: 11-17-[address] [facility] Start: 11-17-2024 End: 11-17-2024 ambulatory Edilia Irving Facility:[facility] Start: 10-06-2024 End: 10-06-[address] Edilia Irving MD Work Phone: -lab [facility] Start: 10-06-2024 End: 10-06-[address] [facility] Start: 10-06-2024 End: 10-06-2024 ambulatory Edilia Irving Facility:[facility] Start: 09-19-2024 End: 09-19-[address] Seth Camargo MD -[facility] Work Phone: Start: 09-19-2024 End: 09-19-[address] Edilia Irving MD Work Phone: -[facility] Start: 09-10-2024 End: 09-10-[address] Edilia Irving MD Work Phone: -[facility] Start: 09-10-2024 End: 09-10-[address] Seth Camargo MD -[facility] Work Phone: Start: 09-10-2024 End: 09-10-2024 ambulatory Seth Camargo Facility:[facility] Start: 08-25-2024 End: 08-25-[address] Edilia Irving MD Work Phone: -[facility] Start: 08-25-2024 End: 08-25-[address] Nichelle Parsons DO -[facility] Start: 08-25-2024 End: 08-25-2024 ambulatory Edilia Irving Facility:[facility] Start: 07-25-2024 End: 07-25-[address] Edilia Irving MD Work Phone: [facility] Work Phone: Start: 07-25-2024 End: 07-25-[address] Nichelle Parsons DO -[facility] Work Phone: Start: 07-25-2024 End: 07-25-2024 ambulatory Edilia Irving Facility:[facility] Start: 05-22-2024 End: 05-22-[address] Edilia Irving MD Work Phone: [facility] Work Phone: Start: 05-22-2024 End: 05-22-[address] Seth Camargo MD -[facility] [place] Work Phone: Start: 05-22-2024 End: 05-22-2024 ambulatory [facility] Facility:[facility] Start: 05-02-2024 End: 05-02-[address] Nichelle Parsons DO -[facility] Work Phone: Start: 05-02-2024 End: 05-02-2024 ambulatory Edilia S Jolliff Facility:[facility] Start: 03-12-2024 End: 03-12-[address] Seth Camargo MD -Laboratory Work Phone: Start: 03-12-2024 End: 03-12-2024 Patient encounter procedure Kristin CHAMBERS -[facility] Work Phone: Start: 03-12-2024 End: 03-12-2024 ambulatory Edilia S Jolliff Facility:[facility] Start: 03-12-2024 End: 03-12-2024 ambulatory [facility] Facility:[facility] Start: 12-12-2023 End: 12-12-2023 ambulatory Edilia S Jolliff Facility:[facility] Start: 12-06-2023 End: 12-06-2023 ambulatory Edilia S Jolliff Facility:[facility] Start: 12-06-2023 End: 12-06-2023 ambulatory [facility] Facility:[facility] Start: 09-13-2021 End: 09-13-2021 Patient encounter procedure [facility]-Ultrasound, [facility] Start: 02-15-2021 End: 02-15-2021 Emergency department patient visit Amy Blount [facility] 02 Procedures Date Procedure Procedure Detail Performing Clinician Start: 11-17-[address] Edilia Irving MD Work Phone: Comment on above: Follicular phase 0.1 - 0.9 Luteal phase 1.8 - 23.9 Ovulation phase 0.1 - 12.0 First trimester 11.0 - 44.3 Second trimester 25.4 - 83.3 Third trimester 58.7 - 214.0 Postmenopausal 0.0 - 0.1Performed at: [address] [id number] Director: Alonso Ram PhD, Phone: [phone] Start: 10-06-[address] Edilia Irving MD Work Phone: Comment on above: Follicular phase 0.1 - 0.9 Luteal phase 1.8 - 23.9 Ovulation phase 0.1 - 12.0 First trimester 11.0 - 44.3 Second trimester 25.4 - 83.3 Third trimester 58.7 - 214.0 Postmenopausal 0.0 - 0.1Performed at: [id number] [place], [place] [id number] Director: Alonso Ram PhD, Phone: [phone] Start: 08-25-[address] Edilia Irving MD Work Phone: Comment on above: Follicular phase 0.1 - 0.9 Luteal phase 1.8 - 23.9 Ovulation phase 0.1 - 12.0 First trimester 11.0 - 44.3 Second trimester 25.4 - 83.3 Third trimester 58.7 - 214.0 Postmenopausal 0.0 - 0.1Performed at: [facility] [place], [place] [id number] Director: Alonso Ram PhD, Phone: [phone] Start: 07-25-[address] Edilia Irving MD Work Phone: Comment on above: Follicular phase 0.1 - 0.9 Luteal phase 1.8 - 23.9 Ovulation phase 0.1 - 12.0 First trimester 11.0 - 44.3 Second trimester 25.4 - 83.3 Third trimester 58.7 - 214.0 Postmenopausal 0.0 - 0.1Performed at: [facility] [place] [id number] Director: Alonso Ram PhD, Phone: [phone] Start: 09-13-2021 Transvaginal echography Plan of Treatment Date Care Activity Detail Author Start: 09-19-2024 T4 free measurement [facility] Start: 09-19-2024 Thyroid stimulating hormone measurement [facility] Payers Date Payer Category Payer Unknown [id number] 2023 Self-pay [id number] 2023 Unknown [id number] Unknown Unknown [id number] Unknown [id number] 2.16.8 [id number] Unknown [id number] 2.16.8 [id number] Unknown [id number] 2.16.8 [id number] Unknown [id number] 2.16.8 40.1.742577.3.579.2.462 Unknown [id number] 2.16.8 40.1.889473.3.579.2.462 Unknown [id number] 2.16.8 40.1.213525.3.579.2.462 Unknown [id number] 2.16.8 40.1.362511.3.579.2.462 Unknown [id number] 2.16.8 40.1.448520.3.579.2.462 Unknown [id number] 2.16.8 40.1.412018.3.579.2.462 Unknown [id number] 2.16.8 40.1.903482.3.579.2.462 Unknown [id number] 2.16.8 [id number] Unknown [id number] 2.16.8 40.1.882062.3.579.2.462 Unknown [id number] 2.16.8 [id number] Social History Date Type Detail Facility [facility] Tobacco smoking consumption unknown [facility] Start: 2000 Sex Assigned At Female [facility] Start: 12-26-2023 Tobacco smoking status NHIS Never smoked tobacco (finding) [facility] Start: 05-27-2024 Sex Female (finding) [facility] Sex Female [facility] Evaluation note 09-19-2024 Note Date & Type Note Facility 09-19-2024 Evaluation note Diagnosis Onset Date Resolution Hypothyroidism (acquired) chronic September 19, 2024 9:30am PCOS (polycystic ovarian syndrome) chronic September 19, 2024 9:30am [facility] Work Phone: Evaluation note 05-02-2024 Note Date & Type Note Facility 05-02-2024 Evaluation note Diagnosis Onset Date Resolution PCOS (polycystic ovarian syndrome) chronic May 02 9:43am [facility] Work Phone: Evaluation note 03-12-2024 Note Date & Type Note Facility 03-12-2024 Evaluation note Diagnosis Onset Date Resolution Hypothyroidism (acquired) acute March 12 10:24am Irregular menstrual bleeding acute March 12 10:24am Hypertension chronic February 10:24am PCOS (polycystic ovarian syndrome) chronic March 12 10:24am PCOS (polycystic ovarian syndrome) chronic May 02, 2024 9:43am [facility] Work Phone: Evaluation note Note Date & Type Note Facility Evaluation note No assessment information availa ble [facility] Work Phone: Evaluation note Note Date & Type Note Facility Evaluation note Diagnosis Onset Date Resolution Hypothyroidism (acquired) acute September 19, 2024 9:30am [facility] Work Phone: Reason for referral (narrative) Note Date & Type Note Facility Reason for referral (narrative) No reason for referral information available [facility] Work Phone: Summary Purpose Family History [...] ed section and content) Section Author: Miri Menditea PROHIBITION ON REDISCLOSURE OF CONFIDENTIAL INFORMATION This notice accompanies a disclosure of information concerning a client made to you with the consent of such client. INFORMATION SOURCE (unrecogn ized section and content) DATE CREATED AUTHOR 02/17/2021 [facility] DATE CREATED AUTHOR AUTHOR'S ORGANIZ ATION 02/18/[address] [facility] DATE CREATED AUTHOR AUTHOR'S ORGANIZ ATION 11/22/2024 [facility] Goals (unrecognized section and content) Goals may [...] BE BASED ON THE PRIMARY CLINICAL RECORDS. [employer] [facility] provides no warranty or guarantee of the accuracy or completeness of information in this document.
== END | disposition home or self-care (01) ==
LOC: BWCLAB 09:33
PROVIDERS: PCP Family Medicine; Visit Provider Obstetrics & Gynecology
DX: N92.6 Irregular menstruation, unspecified (principal); E28.2 Polycystic ovarian syndrome
CPT/HCPCS: 36415

== ENCOUNTER → 2024-12-17 | Outpatient (CLI) | payer OTHER, SELFPAY ==
--- NOTE | 2024-12-17 09:01 | US_ITS ---
PROCEDURE: US/Transvaginal Non-
== END | disposition home or self-care (01) ==
LOC: OPUS 09:00
PROVIDERS: PCP Family Medicine; Referring Provider Obstetrics & Gynecology; Visit Provider Obstetrics & Gynecology
DX: Z31.9 Encounter for procreative management, unspecified (principal)
CPT/HCPCS: 76830